=== PATIENT | male | born 1955 | race Caucasian/White ===

== ENCOUNTER 2021-08-19 09:54 | Outpatient (CLI) | payer OTHER, SELFPAY ==
--- NOTE | 2021-08-19 10:13 | CT_ITS ---
WS: [id number] CT HEAD TECHNIQUE: Noncontrast CT of the head obtained from the skullbase to the vertex. CLINICAL INFORMATION: L HAND NUMBNESS COMPARISON: None. DLP: 1030.[address] scans at [facility] use at least one of these dose optimization techniques: automated e xposure control; mA and/or kV adjustment per patient size (includes targeted exams where dose is matc hed to clinical indication); or iterative reconstruction. FINDINGS: No evidence of intracranial hemorrhage or mass effect. Ventricular system and basal cisterns are valdes nt. Mild small vessel changes with mild parenchymal volume loss. No extra-axial fluid collections. No evidence of mass or mass effect. Intracranial cavernous carotid and supraclinoid ICA calcification R IGHT greater than LEFT. Paranasal sinuses and mastoid air cells are well aerated. .Normal visualized soft tissues. CT/CT head wo con* [id number] IMPRESSION: 1. No evidence of intracranial hemorrhage or mass effect. 2. Mild small vessel changes with mild parenchymal volume loss. Paranasal sinu ses and mastoid air cells well aerated. 3. Cavernous carotid and RIGHT greater than LEFT supraclinoid ICA calcificatio n with suggestion of stenosis. This can be further evaluated with CTA or MRA he ad. 4. If persistent symptoms, recommend further evaluation with MRI head without and with gadolinium enhancement.
== END 2021-08-19 09:55 | disposition home or self-care (01) ==
PROVIDERS: Visit Provider Nurse Practitioner
DX: R20.0 Anesthesia of skin (principal)
CPT/HCPCS: 70450

== ENCOUNTER → 2021-10-02 11:44 | Outpatient (BNVA) | payer OTHER, SELFPAY | PROVIDERS: Visit Provider Urology | DX: R97.20 Elevated prostate specific antigen [PSA] (principal) | CPT/HCPCS: 99203; 99213 ==

== ENCOUNTER 2021-10-02 11:45 | Outpatient (CLI) | payer OTHER, SELFPAY | END 2021-10-02 11:46 | disposition home or self-care (01) | LOC: LAB 11:45 | PROVIDERS: Visit Provider Urology | DX: R97.20 Elevated prostate specific antigen [PSA] (principal) | CPT/HCPCS: 36415; 84153; 99203 ==

== ENCOUNTER 2022-01-01 08:22 | Outpatient (CLI) | payer OTHER, SELFPAY ==
[2022-01-01 09:12] LABS: Prostate Specific AG Urology 6.18 ng/mL (0-4)
== END 2022-01-01 08:23 | disposition home or self-care (01) ==
LOC: LAB 08:24
PROVIDERS: PCP Internal Medicine; Visit Provider Urology
DX: R97.20 Elevated prostate specific antigen [PSA] (principal)
CPT/HCPCS: 36415; 84153

== ENCOUNTER → 2022-01-30 08:00 | Outpatient (BNVA) | payer OTHER, SELFPAY | PROVIDERS: PCP Nurse Practitioner; Visit Provider Urology | DX: R97.20 Elevated prostate specific antigen [PSA] (principal); R39.198 Other difficulties with micturition | CPT/HCPCS: 51798; 81003; 99213 ==

== ENCOUNTER 2022-07-30 08:47 | Outpatient (CLI) | payer OTHER, SELFPAY ==
[2022-07-30 09:59] LABS: Prostate Specific AG Urology 6.21 ng/mL (0-4)
== END 2022-07-30 08:48 | disposition home or self-care (01) ==
LOC: LAB 08:56
PROVIDERS: PCP Nurse Practitioner; Visit Provider Urology
DX: R97.20 Elevated prostate specific antigen [PSA] (principal)
CPT/HCPCS: 36415; 84153

== ENCOUNTER → 2022-08-04 08:08 | Outpatient (BNVA) | payer OTHER, SELFPAY | PROVIDERS: PCP Nurse Practitioner; Visit Provider Urology | DX: R97.20 Elevated prostate specific antigen [PSA] (principal); R39.198 Other difficulties with micturition | CPT/HCPCS: 81003; 99213 ==

== ENCOUNTER 2023-03-12 07:53 | Outpatient (CLI) | payer OTHER, SELFPAY ==
--- NOTE | 2023-03-12 | ECG_ITS ---
[facility] Test Date: 2023-03-12 Pat Name: Jose Mcknight Department: Room: Gender: Male Lab Rn: Gomez Davies : 1955 Requested By: Susana Macias Order Number: [id number] Ganesh MD: Lucero Carver M.D. Interpretive Statements NAME OF STUDY: LEXISCAN SESTAMIBI STRESS TEST INDICATION: Chest Pain PROCEDURE: At the baseline, the blood pressure was 128/87 mmHg with a heart rate of 59 bpm. The electrocardiogram showed sinus bradycardia with first-degree AV block with nonspecific ST changes. ??? The Lexiscan was infused over a period of 20 seconds. A total of 0.4 milligrams of Lexiscan was infused. The stress phase was continued for a total of 5 minutes. Heart rate at the end of the stress phase was 80 bpm with a blood pressure of 100 over 61 mm Hg. The EKG at the peak infusion revealed no significant ST-T wave changes. ??? Sestamibi was injected 20 seconds after the Lexiscan infusion. ??? Blood pressure at the end of the recovery phase was 111/66 mmHg with a heart rate of 66 beats per minute. ??? CONCLUSION: 1. No significant EKG changes with the LexiScan infusion. 2. No LexiScan induced chest pain or cardiac arrhythmia. 3. Normal blood pressure and heart rate response. 4. Sestamibi/sestamibi perfusion scan pending; see separate report. Electronically Signed On 03-16-2023 12:08:05 PRODUCTION LEAD by Lucero Carver M.D. [id number]
[2023-03-12 08:11] VITALS: BMI 26.6
--- NOTE | 2023-03-12 08:11 | NMCV_ITS ---
NM jose antonio perf SPECT r/s* [id number] Jose Mcknight Age: 67 Gender: M : 1955 Exam Date: 03/12/2023 08:53 Ordering Phys: Susana Layton Technologist: YANIQUE Granda Exam Location: [facility] Indications: CHEST PAIN STRESS TEST Please [facility] IMAGE PROTOCOL Rest/Stress 1 Lexiscan Day Radiopharmaceutical Dose (mCi) Administration Site Administered by Rest: Tc-99m 10.7 IV YANIQUE Gonzalez Sestamibi Stress:Tc-99m 32.4 IV YANIQUE Gonzalez Sestamibi Rest: 12-Mar-2023 60 Discovery 630 Stress: 12-Mar-2023 30 Discovery 630 0.4mg Lexiscan. Images obtained in supine and prone position. SPECT RESULTS Technical Quality: Excellent Raw Data Analysis: Normal Image Corrections: No attenuation or motion correction applied Summed Stress Score: 0 Summed Rest Score: 8 Summed Difference Score: 0 PERFUSION FINDINGS SPECT images demonstrate homogeneous tracer distribution throughout the myocardium. FUNCTIONAL RESULTS (calculated via Gated SPECT) Stress Image LV EF (%): 79 Stress EDV (mL):78 TID: 0.98 Stress ESV (mL):16 FUNCTIONAL FINDINGS: The left ventricle is normal in size. Transient Ischemia Dilatation of 0.98. The left ventricular ejection fraction is normal with a value of 79%. There is normal left ventricular global systolic function. There is normal left ventricular wall thickening. IMPRESSIONS 1. Myocardial perfusion imaging is normal. Attenuation artifact noted in the basal to mid inferior lam. 2. Overall left ventricular systolic function is normal without regional wall motion abnormalities, LVEF=79%. 3. EKG portion of the study will be reported separately. 4. Scan indicates low risk for cardiac events. Lucero Carver MD (Electronically Signed) Final Date: 15 March 2023 12:01 S
[2023-03-12] MEDS: regadenoson 0.4 Mg/5 ml Syringe IVP (09:31)
[2023-03-12 09:48] VITALS: BP 111/66; PULSE 67
== END 2023-03-12 07:54 | disposition home or self-care (01) ==
LOC: CDL 07:54
PROVIDERS: PCP Nurse Practitioner; Visit Provider Nurse Practitioner
DX: R07.9 Chest pain, unspecified (principal)
CPT/HCPCS: 36415; 78452; 93017; 96374; A9500; J2785

== ENCOUNTER 2024-01-14 10:19 | Emergency (ER) | payer OTHER, SELFPAY ==
[2024-01-14] VITALS (9 sets, daily range): BP systolic 134–168; BP diastolic 85–98; PULSE 63–76; RESP 16–25; TEMP 36.8; O2SAT 85–100; BMI 27.4
--- NOTE | 2024-01-14 10:20 | ECG_ITS ---
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
--- NOTE | 2024-01-14 10:41 | ED_ITS ---
HPI - Abdominal Pain 2 General: Chief Complaint: Chest Pain Stated Complaint: CP, SOB Time Seen by Provider: 01/14/24 10:21 Source: patient Mode of arrival: ambulatory Limitations: no limitations History of Present Illness: Patient is a very nice 68-year-old male presents to ED today with complaint of right upper quadrant abdominal pain. He states on Wednesday, he was out of town in [place] and ate a salad for dinner. He states he stayed half of the salad and ate it later that evening. He states he was up all night with abdominal pain, nausea, and a few episodes of diarrhea. Patient feels like the diarrhea has improved. He has intermittently had significant episodes of right upper quadrant pain since then. He has not ran fevers. He is not complaining of chest pain, shortness of breath, or difficulty breathing. Vital signs are stable upon arrival. MD elicited complaint: abdominal pain Pertinent past history: none Onset (ago): day(s) Pain Consistency: constant Location: RUQ Severity: severe (at its worst-rating a 3/10 currently) Migration to: no migration Exacerbating factors: nothing Relieving factors: nothing Associated Symptoms: Reports diarrhea (improved) and nausea; Denies chills, dysuria, fever(s), hematochezia, melena, syncope and vomiting Related Data Home Medications Medication Instructions Recorded Confirmed cholecalciferol (vitamin D3) 125 125 mcg PO DAILY 10/02/21 01/14/24 mcg (5,000 unit) capsule lisinopril 40 mg tablet 40 mg PO DAILY 10/02/21 01/14/24 metformin 1,000 mg tablet 1,000 mg PO BID 10/02/21 01/14/24 omega 7-rjb-qfk-fish oil 300 1 cap PO BID 10/02/21 01/14/24 mg-1,000 mg capsule (Fish Oil) spironolactone 25 mg tablet 25 mg PO DAILY 01/30/22 01/14/24 empagliflozin 25 mg tablet 25 mg PO DAILY 01/14/24 01/14/24 ezetimibe 10 mg PO DAILY 01/14/24 01/14/24 glipizide 10 mg tablet 10 mg PO DAILY 01/14/24 01/14/24 Previous Rx's Medication Instructions Recorded hydrocodone 5 mg-acetaminophen 325 1 tab PO Q6H PRN pain #14 tabs 01/14/24 mg tablet ondansetron 4 mg disintegrating 4 mg PO Q8H PRN nausea and 01/14/24 tablet vomiting #14 tabs Allergies Allergy/AdvReac Type Severity Reaction Status Date / Time No Known Allergies Allergy Verified 01/14/24 10:30 Review of Systems 2 Const: Reports: fatigue and malaise; Denies: fever(s), chills or body aches Eyes: Denies: yellow eyes Card: Denies: chest pain, palpitations, irregular heart rhythm, edema, swelling of feet/ankles, lightheadedness, syncope, pre-syncope, dyspnea on exertion, orthopnea, leg pain with exertion or acrocyanosis Resp: Denies: dyspnea GI: Reports: abdominal pain, nausea and diarrhea (improved); Denies: vomiting, hematochezia or melena : Denies: flank pain, difficulty urinating, dysuria, urinary frequency, urinary urgency or urinary hesitancy Musc: Denies: neck pain, back pain, extremity pain, extremity swelling, joint pain or joint swelling Skin/Breast: Denies: rash Neuro: Denies: headache(s), numbness in extremities, weakness in extremities, sensory changes or dizziness PFSH ED 2 PFSH: Medical History Elevated PSA Surgical History History of vocal cord polypectomy Family History Father , AT 72 Stroke Mother , IN LATE 40'S EARLY 50'S Cirrhosis of liver Social History Smoking and tobacco/nicotine status: never used tobacco/nicotine Alcohol intake: never Substance/Drug Use: never Marital status: Current occupational status: unemployed Physical Exam 2 Const: COMMON NORMALS: no acute distress, average body habitus, patient oriented x3, no limitations, healthy appearing, alert and well nourished HENMT: FACE & SINUS: normal facial exam Eye: COMMON NORMALS: no scleral icterus Chest: COMMONS NORMALS: normal inspection of the chest and normal palpation of entire chest wall Resp: COMMON NORMALS: normal respiratory effort and clear to auscultation bilaterally AUSCULTATION: clear to auscultation bilaterally Cardio: COMMON NORMALS: regular rate and regular rhythm RATE: regular rate RHYTHM: regular rhythm GI: COMMON NORMALS: Normal to inspection, nondistended, normoactive bowel sounds present, Soft to palpation, No hepatosplenomegaly present and no masses INSPECTION: Yes normal to inspection AUSCULTATION: Yes normoactive bowel sounds PALPATION: Yes Soft to palpation, Yes Tenderness to palpation present (GI) Details: RUQ and Yes No hepatosplenomegaly present : COMMON NORMALS: Yes no CVA tenderness BLADDER/KIDNEY EXAM: Yes no CVA tenderness Back/Pelvis: COMMON NORMALS: no CVA tenderness and thoracic and lumbar spine normal to inspection Extremity: GENERAL: Yes normal exam except as noted Neuro: COMMON NORMALS: patient oriented x3, moves all extremities, no focal motor deficits, no sensory deficits noted and gait normal S ENSORIUM/ORIENTATION: Yes alert Skin: COMMON NORMALS: no rashes or lesions noted GENERAL SKIN EXAM: no rashes or lesions noted Course 2 Consultations: Consultation #1: Dr. Eisenberg-will follow up in office; recommends avoiding greasy/fatty foods, RX pain/nausea Vital Signs: Vital signs: Vital Signs Temperature 98.2 F 01/14/24 10:23 Pulse Rate 72 01/14/24 12:00 Respiratory Rate 18 01/14/24 12:00 Blood Pressure 134/85 01/14/24 11:30 Pulse Oximetry 100 01/14/24 12:00 Oxygen Delivery Me thod Room Air 01/14/24 10:23 MDM - Abdominal Pain Medical Decision Making Patient got triaged as chest pain, shortness of breath however during my examination, his main complaint is right upper quadrant abdominal pain after eating a salad with ranch a few days ago. His vital signs are unremarkable. Blood work here overall is unremarkable apart from an elevated glucose. He is a known diabetic. His white count and liver enzymes are unremarkable. Ultrasound showing cholelithiasis. He does have a 1.8 cm gallstone entrapped in the neck of his gallbladder. Surgical consultation was recommended. I did speak to Dr. Eisenberg who wanted to follow-up with patient next week in office. Recommend patient avoid fatty/greasy foods. Will give him pain/nausea medications he may use at home. Strict return to ED precautions given. He was not complaining of chest pain or shortness of breath during my examination. Blood work had been started from triage based on initial complaint. His baseline troponin is normal. His EKG is unremarkable. He has normal stress test imaging performed within the last year which was normal. Medical Records I reviewed the patient's medical records. Lab Data I reviewed the patient's lab results. 01/14/24 10:43 01/14/24 10:43 Labs/Radiology: Radiology Impressions Gallbladder Ultrasound 01/14/24 10:42 IMPRESSION: 1. Cholelithiasis. 1.8 cm gallstone is possibly entrapped in the gallbladder neck as it does not move with patient positioning. Recommend surgical consultation. No acute cholecystitis at this time by ultrasound criteria. 2. No bile duct dilatation. Laboratory Results WBC 10.74 10^3/uL (3.29-11.43) 01/14/24 10:43 RBC 5.13 10^6/uL (3.85-5.65) 01/14/24 10:43 Hgb 15.40 g/dL (11.27-16.99) 01/14/24 10:43 Hct 45.9 % (37-53) 01/14/24 10:43 MCV 89.5 fl (82-101) 01/14/24 10:43 MCH 30.0 pg (27-33) 01/14/24 10:43 MCHC 33.6 g/dL (30-55) 01/14/24 10:43 RDW 12.8 % (12.1-15.1) 01/14/24 10:43 Plt Count 212 10^3/cmm (157-399) 01/14/24 10:43 MPV 9.5 fL (7.4-10.4) 01/14/24 10:43 Neut % (Auto) 79.0 % 01/14/24 10:43 Lymph % (Auto) 10.3 % 01/14/24 10:43 [place] % (Auto) 6.3 % 01/14/24 10:43 Eos % (Auto) 3.5 % 01/14/24 10:43 Baso % (Auto) 0.4 % 01/14/24 10:43 Neut # (Auto) 8.48 10^3/uL (1.8-7.7) H 01/14/24 10:43 Lymph # (Auto) 1.1 10^3/uL (0.8-4.8) 01/14/24 10:43 [place] # (Auto) 0.7 10^3/uL (0.2-0.9) 01/14/24 10:43 Eos # (Auto) 0.4 10^3/uL (0.0-0.8) 01/14/24 10:43 Baso # (Auto) 0.0 10^3/uL (0.0-0.1) 01/14/24 10:43 Nucleated RBC % (auto) 0 % 01/14/24 10:43 Nucleated RBCs # 0.0 /100WBC 01/14/24 10:43 Sodium 138 mmol/L (136-145) 01/14/24 10:43 Potassium 4.1 mmol/L (3.5-5.1) 01/14/24 10:43 Chloride 103 mmol/L (98-107) 01/14/24 10:43 Carbon Dioxide 22 mmol/L (22-29) 01/14/24 10:43 Anion Gap 17.1 (5-19) 01/14/24 10:43 BUN 15 mg/dL (8-23) 01/14/24 10:43 Creatinine 0.8 mg/dL (0.7-1.2) 01/14/24 10:43 GFR Calculation 95.8 mL/min (90-130) 01/14/24 10:43 Glucose 285 mg/dL (65-115) H 01/14/24 10:43 Calculated Osmolality 297 mOsm/kg (285-295) H 01/14/24 10:43 Calcium 9.0 mg/dL (8.5-10.5) 01/14/24 10:43 Total Bilirubin 1.2 mg/dL (0.15-1.2) 01/14/24 10:43 AST 12 U/L (0-40) 01/14/24 10:43 ALT 13 U/L (0-41) 01/14/24 10:43 Alkaline Phosphatase 76 U/L (40-130) 01/14/24 10:43 Troponin T Baseline 11 ng/L (0-15) 01/14/24 10:43 Total Protein 6.9 g/dL (6.6-8.7) 01/14/24 10:43 Albumin 4.2 g/dL (3.5-5.2) 01/14/24 10:43 Globulin 2.7 g/dL (1.3-4.6) 01/14/24 10:43 Lipase 38 U/L (13-60) 01/14/24 10:43 Urine Color Yellow (Yellow) 01/14/24 11:43 Urine Appearance Clear (CLEAR) 01/14/24 11:43 Urine pH 5.0 (5-7) 01/14/24 11:43 Ur Specific [place] 1.041 (1.005-1.030) H 01/14/24 11:43 Urine Protein Negative (Negative) 01/14/24 11:43 Urine Glucose (UA) 3+ (Normal) H 01/14/24 11:43 Urine Ketones Negative (Negative) 01/14/24 11:43 Urine Blood Negative (Negative) 01/14/24 11:43 Urine Nitrate Negative (Negative) 01/14/24 11:43 Urine Bilirubin Negative (Negative) 01/14/24 11:43 Urine Urobilinogen 1.0 mg/dL (Negative) 01/14/24 11:43 Ur Leukocyte Esterase Negative (Negative) 01/14/24 11:43 Urine RBC 0-2 /hpf (0-2) 01/14/24 11:43 Urine WBC 0-5 /hpf (0-5) 01/14/24 11:43 Ur Squamous Epith Cells 0-5 /hpf (0-5) 01/14/24 11:43 Amorphous Sediment Not Reportable 01/14/24 11:43 Urine Bacteria None seen /hpf (NONE) 01/14/24 11:43 Hyaline Casts 0-4 /lpf H 01/14/24 11:43 All radiology interpretation(s) finalized by discharge Discharge Plan Discharge Patient Disposition: Home Clinical Impression: Cholelithiasis Qualifiers: Cholelithiasis location: gallbladder Cholecystitis presence: without cholecystitis Biliary obstruction: without biliary obstruction Qualified Code(s): K80.20 - Calculus of gallbladder without cholecystitis without obstruction Condition: Stable Prescriptions: New hydrocodone-acetaminophen 5-325 mg tablet 1 tab PO Q6H PRN (Reason: pain) Qty: 14 0RF ondansetron 4 mg tablet,disintegrating 4 mg PO Q8H PRN (Reason: nausea and vomiting) Qty: 14 0RF No Action omega 3-cvt-xtj-fish oil [Fish Oil] 300-1,000 mg capsule 1 cap PO BID lisinopril 40 mg tablet 40 mg PO DAILY metformin 1,000 mg tablet 1,000 mg PO BID cholecalciferol (vitamin D3) 125 mcg (5,000 unit) capsule 125 mcg PO DAILY spironolactone 25 mg tablet 25 mg PO DAILY glipizide 10 mg tablet 10 mg PO DAILY empagliflozin 25 mg Tablet 25 mg PO DAILY ezetimibe 10 mg PO DAILY Discharge Orders: Discharge ED (Routine); Ordered 01/14/24 Ordered By: Angelika Whitaker Referrals: Susana Layton FNP [Primary Care Provider] - Patient Instructions: Gallstones (ED) Activity Restrictions/Additional Instructions: As we discussed, you need to completely avoid any greasy or fatty foods until your follow-up with general surgery and told otherwise. You need to return to the emergency department for severe or constant right upper quadrant pain, repetitive episodes of vomiting, fevers, yellowing to your skin or eyes, generally feeling worse or unwell, or any other concerns you may have. Case management should reach out to you later today or early next week to set you up with your general surgery appointment. Coding Level of Care Code ED Certified Nutritionist for Lily Goyal
--- NOTE | 2024-01-14 10:42 | US_ITS ---
WS: [id number] RIGHT UPPER QUADRANT ULTRASOUND HISTORY: RUQ pain COMPARISON: None available. Liver: 16.0 cm in length. Normal size liver and echogenicity. No bile duct dilatation or mass. Portal Vein: Not obtained. Gallbladder: Normally distended gallbladder. There is a stone in the gallbladder neck which does not move with patient position. Stone measures approximately 1.8 x 0.9 x 1.4 cm. There is also small amou nt of sludge adjacent to this gallstone. CBD: 0.4 cm Pancreas: Head and tail are not visualized. The body is normal. Right kidney: 9.6 cm in length. Normal size and echogenicity. No hydronephrosis or mass. Aorta and IVC: Unremarkable abdominal aorta and IVC. No ascites. US/US gall bladder [id number] IMPRESSION: 1. Cholelithiasis. 1.8 cm gallstone is possibly entrapped in the gallbladder n bertha as it does not move with patient positioning. Recommend surgical consultati on. No acute cholecystitis at this time by ultrasound criteria. 2. No bile duct dilatation.
--- NOTE | 2024-01-14 10:48 | PC.PHAR ---
[facility] has [facility], faxed them at 10:50
[2024-01-14 10:58] LABS: Basophils % 0.4 %; Eosinophils # 0.4 10^3/uL (0.0-0.8); Eosinophils % 3.5 %; Hematocrit 45.9 % (37-53); Lymphocytes # 1.1 10^3/uL (0.8-4.8); Lymphocytes % 10.3 %; Mean Corpuscular HGB Conc 33.6 g/dL (30-55); Mean Corpuscular Volume 89.5 fl (82-101); Mean Platelet Volume 9.5 fL (7.4-10.4); Monocytes # 0.7 10^3/uL (0.2-0.9); Monocytes % 6.3 %; Neutrophils # 8.48 10^3/uL (1.8-7.7); Nucleated Red Blood Cells % 0 %; Platelet Count 212 10^3/cmm (157-399); Red Blood Count 5.13 10^6/uL (3.85-5.65); Red Cell Distribution Width 12.8 % (12.1-15.1); White Blood Count 10.74 10^3/uL (3.29-11.43)
[2024-01-14 11:14] LABS: Alanine Aminotransferase 13 U/L (0-41); Albumin Level 4.2 g/dL (3.5-5.2); Alkaline Phosphatase 76 U/L (40-130); Anion Gap 17.1 (5-19); Aspartate Amino Transferase 12 U/L (0-40); Blood Urea Nitrogen 15 mg/dL (8-23); Carbon Dioxide 22 mmol/L (22-29); Chloride 103 mmol/L (98-107); Creatinine Clr Calc Pharmacy 79.5668; Globulin 2.7 g/dL (1.3-4.6); Glomerular Filtration Rate 95.8 mL/min (90-130); Glucose 285 mg/dL (65-115); Lipase 38 U/L (13-60); Osmolality Calculated 297 mOsm/kg (285-295); Potassium 4.1 mmol/L (3.5-5.1); Sodium 138 mmol/L (136-145); Total Bilirubin 1.2 mg/dL (0.15-1.2); Total Protein 6.9 g/dL (6.6-8.7)
[2024-01-14 11:21] LABS: Troponin(5th) Baseline 11 ng/L (0-15)
[2024-01-14 11:54] LABS: Bilirubin Urine Negative (Negative); Blood Urine Negative (Negative); Glucose Urine UA 3+ (Normal); Ketones Urine Negative (Negative); Leukocyte Esterase Urine Negative (Negative); Nitrate Urine Negative (Negative); Protein Urine Negative (Negative); Urine Appearance Clear (CLEAR); Urine Color Yellow (Yellow)
[2024-01-14 11:56] LABS: Add Urine Microscopic? YES; Bacteria Urine None Seen /hpf; Hyaline Casts Urine 0-4 /lpf; RBC Urine 0-2 /hpf (0-2); Squamous Epithelial Cell Urine 0-5 /hpf (0-5); WBC Urine 0-5 /hpf (0-5)
[2024-01-14 12:00] LABS: Specific Gravity, Urine 1.041 (1.005-1.030)
--- NOTE | 2024-01-17 08:39 | DCPLANNER ---
messaged sent to gen surg.
== END 2024-01-14 12:12 | disposition home or self-care (01) ==
PROVIDERS: Emergency Medicine; Emergency Provider Physician Assistant; PCP Nurse Practitioner
DX: K80.20 Calculus of gallbladder without cholecystitis without obstruction (principal); Z79.84 Long term (current) use of oral hypoglycemic drugs
CPT/HCPCS: 36415; 76705; 80053; 81001; 83690; 84484; 85025; 93005; 99284

== ENCOUNTER → 2024-01-26 11:27 | Outpatient (BNVA) | payer OTHER, SELFPAY | PROVIDERS: PCP Nurse Practitioner; Visit Provider Surgery | DX: K82.9 Disease of gallbladder, unspecified (principal) | CPT/HCPCS: 99203 ==

== ENCOUNTER 2024-02-21 05:38 | Day surgery (SDC) | payer OTHER, SELFPAY ==
--- NOTE | 2024-02-21 05:48 | W.PM.OPSUD ---
Surgery/Procedure H&P Update DATE OF PROCEDURE: February 21, 2024 DATE H&P PERFORMED: 01/26/24 H&P UPDATE INFORMATION: I have reviewed H&P completed within last 30 days, I have examined patient prior to procedure, No changes to prior documentation and H&P is in [facility] on date indicated PLANNED PROCEDURE: Operation Date: 02/21/24 07:00 Proposed Procedures p Laparoscopic Cholecystectomy/ possible open(Not Applicable) - Brenden Reeves MD
--- NOTE | 2024-02-21 06:01 | PC.NURSE ---
pt arrived for procedure to remove gall bladder. pt is questioning if he really needs the procedure since he has not had symptoms since his initial ER visit. Pt felt as if his visit to the clinic did not fully answer his questions about the necessity for the surgery. Dr. Reeves was contacted to come to see the patient before proceeding with pre op prep.
--- NOTE | 2024-02-21 06:53 | ANES.PREANE2 ---
Pre-Anesthetic Assessment Height/Weight: Height 1.63 m Operation Date: 02/21/24 07:00 Proposed Procedures p Laparoscopic Cholecystectomy/ possible open(Not Applicable) - Brenden Reeves MD Familial anesthetic complications: None Was Beta Catarina taken within 24 hours: N/A Was Clonidine taken within 24 hours: N/A Last intake: > 8 hrs Social No alcohol and No tobacco Exam alert, oriented x 3, clear to auscultation bilaterally and regular rate & rhythm Airway Mallampati: Class I Dentition: full CV/HEM Hypertension Metabolic Diabetes Mellitus Anesthetic Plan ASA status: 3 Anesthesia: General Risk of > 500 ml blood loss (7ml/kg in children): No Medications/Allergies Home Medications Medication Instructions Recorded Confirmed Last Taken Type cholecalciferol (vitamin D3) 125 125 mcg PO DAILY 10/02/21 02/17/24 Unknown History mcg (5,000 unit) capsule lisinopril 40 mg tablet 40 mg PO DAILY 10/02/21 02/17/24 02/17/24 History metformin 1,000 mg tablet 1,000 mg PO BID 10/02/21 02/17/24 02/17/24 History omega 1-jah-oju-fish oil 300 1 cap PO ONCE 10/02/21 02/17/24 Unknown History mg-1,000 mg capsule (Fish Oil) spironolactone 25 mg tablet 25 mg PO DAILY 01/30/22 02/17/24 02/17/24 History empagliflozin 25 mg tablet 25 mg PO DAILY 01/14/24 02/17/24 02/17/24 History (Jardiance) ezetimibe 10 mg PO DAILY 01/14/24 02/17/24 Unknown History glipizide 10 mg tablet 10 mg PO DAILY 01/14/24 02/17/24 02/17/24 History hydrocodone 5 mg-acetaminophen 325 1 tab PO Q6H PRN pain #14 tabs 01/14/24 02/17/24 Unknown Rx mg tablet ondansetron 4 mg disintegrating 4 mg PO Q8H PRN nausea and 01/14/24 02/17/24 Unknown Rx tablet vomiting #14 tabs Allergies Allergy/AdvReac Type Severity Reaction Status Date / Time No Known Allergies Allergy Verified 02/17/24 14:41 PFSH Anesthesia Medical History Elevated PSA Surgical History History of vocal cord polypectomy Family History Father , AT 72 Stroke Mother , IN LATE 40'S EARLY 50'S Cirrhosis of liver Social History Smoking and tobacco/nicotine status: never used tobacco/nicotine Alcohol intake: never Substance/Drug Use: never Marital status: Current occupational status: unemployed Data Anesthesia Cardiac Studies: Sestamibi Stress Test (Cardiology) 03/12/23
--- NOTE | 2024-02-21 09:24 | SUR.PREOP ---
0645 Dr. Reeves here to speak with patient,patient has decided to cancel surgery and left with and daughter ambulatory.
== END 2024-02-21 06:45 | disposition home or self-care (01) ==
LOC: OR 05:39
PROVIDERS: PCP Nurse Practitioner; Visit Provider Surgery
PROC: 0FT44ZZ Resection of Gallbladder, Percutaneous Endoscopic Approach (ICD-10-PCS; CPT 47562; principal; 2024-02-21 07:00)
DX: Z53.9 Procedure and treatment not carried out, unspecified reason (principal)

== ENCOUNTER 2024-08-12 09:57 | Observation (INO) | payer OTHER, SELFPAY ==
[2024-08-12] VITALS (9 sets, daily range): BP systolic 109–134; BP diastolic 59–87; PULSE 72–87; RESP 16–18; TEMP 36.4–37.3; O2SAT 95–100; BMI 27.4; BMI 24.7
--- NOTE | 2024-08-12 09:59 | ECG_ITS ---
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 Measurements Intervals [place] Rate: 76 P: 68 UT: 174 QRS: 6 QRSD: 96 T: 53 QT: 344 QTc: 388 Interpretive Statements SINUS RHYTHM POSSIBLE RIGHT VENTRICULAR CONDUCTION DELAY [RSR (QR) IN V1/V2] PROBABLE SEPTAL MYOCARDIAL INFARCTION , PROBABLY OLD [35 ms Q WAVE IN V1/V2] Compared to ECG 01/14/2024 10:21:44 No significant changes Electronically Signed On 08-12-2024 11:51:06 CDT by Alta Ruiz M.D. [id number]
--- NOTE | 2024-08-12 10:18 | XRR_ITS ---
PROCEDURE INFORMATION: Exam: XR Chest Exam date and time: 08/12/2024 10:37 AM Age: 68 years old Clinical indication: Chest pressure; PT complains of right sided chest pain that started last night. PT states it has happened before. PT denies any radiation or nausea and vomiting. PT states he has a histroy of gallbladder issues and is supposed to see general surgery soon. TECHNIQUE: Imaging protocol: Radiologic exam of the chest. Views: 1 view. COMPARISON: No relevant prior studies available. FINDINGS: Lungs: Unremarkable. No consolidation. Pleural spaces: Unremarkable. No pleural effusion. No pneumothorax. Heart/Mediastinum: Unremarkable. No cardiomegaly. Bones/joints: Unremarkable. XR/XR chest 1V portable [id number] IMPRESSION: No acute findings.
--- NOTE | 2024-08-12 10:23 | W.ED.CHESTPA ---
HPI - Chest Pain General: Chief Complaint: Chest Pain Stated Complaint: chest pain Time Seen by Provider: 08/12/24 10:14 History of Present Illness: 68-year-old male presents emergency room complaining of right-sided chest pain. With get him to localize the pain more he is complaining of right upper quadrant pain. He has had gallbladder issues in the past. Later in the visit he mentioned he had some blood in his urine a few days ago but repeat UA today was unremarkable. He is diabetic he is on Jardiance and metformin. He has had problems with his gallbladder recently has been seen several times evaluated to have his gallbladder out but at this point they have put off surgery because he had seem to be getting better and had not had any further recurrences. No associated shortness of breath discomfort is not associated with exertion. He has had some vomiting and loose stools with associated with this as well Associated symptoms: Reports abdominal pain, nausea and vomiting; Deny dyspnea or fever(s) Related Data Home Medications ?Medication ?Instructions ?Recorded ?Confirmed cholecalciferol (vitamin D3) 125 125 mcg PO DAILY 10/02/21 02/17/24 mcg (5,000 unit) capsule lisinopril 40 mg tablet 40 mg PO DAILY 10/02/21 02/17/24 metformin 1,000 mg tablet 1,000 mg PO BID 10/02/21 02/17/24 omega 2-ipn-vtw-fish oil 300 1 cap PO ONCE 10/02/21 02/17/24 mg-1,000 mg capsule (Fish Oil) spironolactone 25 mg tablet 25 mg PO DAILY 01/30/22 02/17/24 empagliflozin 25 mg tablet 25 mg PO DAILY 01/14/24 02/17/24 (Jardiance) ezetimibe 10 mg PO DAILY 01/14/24 02/17/24 glipizide 10 mg tablet 10 mg PO DAILY 01/14/24 02/17/24 Previous Rx's ?Medication ?Instructions ?Recorded hydrocodone 5 mg-acetaminophen 325 1 tab PO Q6H PRN pain #14 tabs 01/14/24 mg tablet ondansetron 4 mg disintegrating 4 mg PO Q8H PRN nausea and 01/14/24 tablet vomiting #14 tabs Allergies Allergy/AdvReac Type Severity Reaction Status Date / Time No Known Allergies Allergy Verified 11/21/24 14:41 Review of Systems Const: Denies: fever(s) or chills Card: Denies: chest pain Resp: Denies: dyspnea GI: Reports: abdominal pain, nausea, vomiting and diarrhea; Denies: hematemesis, hematochezia or melena : Denies: dysuria, urinary frequency or urinary urgency Musc: Denies: neck pain or back pain Skin/Breast: Denies: rash PFSH ED PFSH: Medical History Elevated PSA Surgical History History of vocal cord polypectomy Family History Father , AT 72 Stroke Mother , IN LATE 40'S EARLY 50'S Cirrhosis of liver Social History Smoking and tobacco/nicotine status: never used tobacco/nicotine Alcohol intake: never Substance/Drug Use: never Marital status: Current occupational status: unemployed Physical Exam Const: GENERAL APPEARANCE: cooperative ORIENTATION/CONSCIOUSNESS: Yes awake, Yes oriented to person, Yes oriented to place and Yes oriented to time HENMT: COMMON NORMALS: normocephalic, atraumatic and hearing grossly normal bilaterally HEAD & SCALP: normocephalic and atraumatic Resp: COMMON NORMALS: normal respiratory effort, No retractions, No use of accessory muscles and clear to auscultation bilaterally AUSCULTATION: clear to auscultation bilaterally Cardio: COMMON NORMALS: regular rate, regular rhythm and No murmurs present (Cardio) RATE: regular rate RHYTHM: regular rhythm GI: COMMON NORMALS: No hepatosplenomegaly present AUSCULTATION: Yes normoactive bowel sounds PALPATION: Yes Tenderness to palpation present (GI) (Right upper quadrant), No Guarding due to palpation present (GI) and Yes No hepatosplenomegaly present Extremity: COMMON NORMALS: normal to inspection, capillary refill normal, no clubbing, cyanosis or edema, no calf tenderness and no pedal edema Neuro: SENSORIUM/ORIENTATION: Yes oriented to person, Yes oriented to place and Yes oriented to time Skin: COMMON NORMALS: no rashes or lesions noted GENERAL SKIN EXAM: no rashes or lesions noted Course Vital Signs: Vital signs: Vital Signs Temperature 97.6 F 08/12/24 10:10 Pulse Rate 85 08/12/24 14:00 Respiratory Rate 18 08/12/24 13:00 Blood Pressure 125/59 08/12/24 14:00 Pulse Oximetry 95 08/12/24 14:00 Oxygen Delivery Me thod Room Air 08/12/24 14:00 MDM - Chest Pain Medical Decision Making Patient's right upper quadrant tenderness is mild initially and then resolved during the ER visit. Gallbladder wall slightly thickened there is still a stone in the neck of the gallbladder does not appear to be a stone within the common bile duct. White count significantly elevated discussed with surgeon will admit to hold diabetic medications started on Zosyn. Pain and nausea medications General Surgery will reevaluate. Lab Data 08/12/24 10:19 08/12/24 10:19 Radiology Impressions Chest X-Ray 08/12/24 10:18 IMPRESSION: No acute findings. Gallbladder Ultrasound 08/12/24 10:29 IMPRESSION: Stone in the gallbladder neck with slight gallbladder wall thickening. Acute cholecystitis can not be excluded. Laboratory Results WBC 16.77 10^3/uL (3.29-11.43) H 08/12/24 10:19 RBC 5.26 10^6/uL (3.85-5.65) 08/12/24 10:19 Hgb 15.70 g/dL (11.27-16.99) 08/12/24 10:19 Hct 46.8 % (37-53) 08/12/24 10:19 MCV 89.0 fl (82-101) 08/12/24 10:19 MCH 29.8 pg (27-33) 08/12/24 10:19 MCHC 33.5 g/dL (30-55) 08/12/24 10:19 RDW 13.2 % (12.1-15.1) 08/12/24 10:19 Plt Count 197 10^3/cmm (157-399) 08/12/24 10:19 MPV 9.3 fL (7.4-10.4) 08/12/24 10:19 Neut % (Auto) 88.3 % 08/12/24 10:19 Lymph % (Auto) 3.8 % 08/12/24 10:19 Quay % (Auto) 6.6 % 08/12/24 10:19 Eos % (Auto) 0.5 % 08/12/24 10:19 Baso % (Auto) 0.4 % 08/12/24 10:19 Neut # (Auto) 14.80 10^3/uL (1.8-7.7) H 08/12/24 10:19 Lymph # (Auto) 0.6 10^3/uL (0.8-4.8) L 08/12/24 10:19 [place]ay # (Auto) 1.1 10^3/uL (0.2-0.9) H 08/12/24 10:19 Eos # (Auto) 0.1 10^3/uL (0.0-0.8) 08/12/24 10:19 Baso # (Auto) 0.1 10^3/uL (0.0-0.1) 08/12/24 10:19 Nucleated RBC % (auto) 0 % 08/12/24 10:19 Nucleated RBCs # 0.0 /100WBC 08/12/24 10:19 Sodium 135 mmol/L (136-145) L 08/12/24 10:19 Potassium 4.5 mmol/L (3.5-5.1) 08/12/24 10:19 Chloride 99 mmol/L (98-107) 08/12/24 10:19 Carbon Dioxide 21 mmol/L (22-29) L 08/12/24 10:19 Anion Gap 19.5 (5-19) H 08/12/24 10:19 BUN 14 mg/dL (8-23) 08/12/24 10:19 Creatinine 0.9 mg/dL (0.7-1.2) 08/12/24 10:19 GFR Calculation 83.7 mL/min (90-130) L 08/12/24 10:19 Glucose 135 mg/dL (65-115) H 08/12/24 10:19 Calculated Osmolality 283 mOsm/kg (285-295) L 08/12/24 10:19 Lactic Acid 2.0 mmol/L (0.5-2.2) 08/12/24 10:19 Calcium 10.2 mg/dL (8.5-10.5) 08/12/24 10:19 Total Bilirubin 1.2 mg/dL (0.15-1.2) 08/12/24 10:19 AST 11 U/L (0-40) 08/12/24 10:19 ALT 13 U/L (0-41) 08/12/24 10:19 Alkaline Phosphatase 78 U/L (40-130) 08/12/24 10:19 Troponin T Baseline 10 ng/L (0-15) 08/12/24 10:19 Troponin T 120 Minute 8.43 ng/L (0-15) 08/12/24 12:10 Delta Troponin T -1.57 ABS# (0-10) L 08/12/24 12:10 Total Protein 7.6 g/dL (6.6-8.7) 08/12/24 10:19 Albumin 4.5 g/dL (3.5-5.2) 08/12/24 10:19 Globulin 3.1 g/dL (1.3-4.6) 08/12/24 10:19 Urine Color Yellow (Yellow) 08/12/24 13:49 Urine Appearance Clear (CLEAR) 08/12/24 13:49 Urine pH 5.0 (5-7) 08/12/24 13:49 Ur Specific [place] 1.034 (1.005-1.030) H 08/12/24 13:49 Urine Protein Negative (Negative) 08/12/24 13:49 Urine Glucose (UA) 3+ (Normal) H 08/12/24 13:49 Urine Ketones Trace (Negative) 08/12/24 13:49 Urine Blood Negative (Negative) 08/12/24 13:49 Urine Nitrate Negative (Negative) 08/12/24 13:49 Urine Bilirubin Negative (Negative) 08/12/24 13:49 Urine Urobilinogen 0.2 mg/dL (Negative) 08/12/24 13:49 Ur Leukocyte Esterase Negative (Negative) 08/12/24 13:49 Urine RBC 0-4 /hpf (0-2) H 08/12/24 13:49 Urine WBC 0-4 /hpf (0-5) H 08/12/24 13:49 Ur Squamous Epith Cells 0-4 /hpf (0-5) H 08/12/24 13:49 Amorphous Sediment Not Reportable 08/12/24 13:49 Urine Bacteria None /hpf (NONE) 08/12/24 13:49 All radiology interpretation(s) finalized by discharge Discharge Plan Discharge Patient Disposition: Placed in Observation Clinical Impression: Cholecystitis, Cholelithiasis Coding Level of Care Code ED Short Story Writer for Lily Goyal
[2024-08-12 10:27] LABS: Basophils # 0.1 10^3/uL (0.0-0.1); Basophils % 0.4 %; Eosinophils # 0.1 10^3/uL (0.0-0.8); Eosinophils % 0.5 %; Hematocrit 46.8 % (37-53); Lymphocytes # 0.6 10^3/uL (0.8-4.8); Lymphocytes % 3.8 %; Mean Corpuscular HGB Conc 33.5 g/dL (30-55); Mean Corpuscular Hemoglobin 29.8 pg (27-33); Mean Platelet Volume 9.3 fL (7.4-10.4); Monocytes # 1.1 10^3/uL (0.2-0.9); Monocytes % 6.6 %; Neutrophils % 88.3 %; Nucleated Red Blood Cells % 0 %; Platelet Count 197 10^3/cmm (157-399); Red Blood Count 5.26 10^6/uL (3.85-5.65); Red Cell Distribution Width 13.2 % (12.1-15.1); White Blood Count 16.77 10^3/uL (3.29-11.43)
--- NOTE | 2024-08-12 10:29 | USR_ITS ---
PROCEDURE INFORMATION: Exam: US Abdomen, Limited; Right Upper Quadrant Exam date and time: 08/12/2024 11:01 AM Age: 68 years old Clinical indication: Abdominal pain; Localized; Right upper quadrant (ruq); Additional info: Ruq abd pain TECHNIQUE: Imaging protocol: Real time ultrasound of the abdomen with image documentation. Limited exam focused on the right upper quadrant. COMPARISON: US gall bladder [id number] 01/14/2024 11:09 AM FINDINGS: Liver: Normal. No masses. Gallbladder: Gallbladder wall measures 4 mm in thickness. Gallbladder sludge is seen. A 1 cm stone is noted in the gallbladder neck. Biliary ducts: Normal. No stones. No dilation. Pancreas: Visualized pancreas is unremarkable. Right kidney: Normal. No mass. No hydronephrosis. US/US gall bladder [id number] IMPRESSION: Stone in the gallbladder neck with slight gallbladder wall thickening. Acute cholecystitis can not be excluded.
[2024-08-12] MEDS: aspirin 81 mg Chew Tablet 324 MG PO (10:30)
[2024-08-12 10:46] LABS: Alanine Aminotransferase 13 U/L (0-41); Albumin Level 4.5 g/dL (3.5-5.2); Alkaline Phosphatase 78 U/L (40-130); Anion Gap 19.5 (5-19); Aspartate Amino Transferase 11 U/L (0-40); Blood Urea Nitrogen 14 mg/dL (8-23); Calcium 10.2 mg/dL (8.5-10.5); Carbon Dioxide 21 mmol/L (22-29); Chloride 99 mmol/L (98-107); Creatinine Clr Calc Pharmacy 70.7261; Globulin 3.1 g/dL (1.3-4.6); Glomerular Filtration Rate 83.7 mL/min (90-130); Glucose 135 mg/dL (65-115); Osmolality Calculated 283 mOsm/kg (285-295); Potassium 4.5 mmol/L (3.5-5.1); Sodium 135 mmol/L (136-145); Total Bilirubin 1.2 mg/dL (0.15-1.2); Total Protein 7.6 g/dL (6.6-8.7)
[2024-08-12 10:47] LABS: Troponin(5th) Baseline 10 ng/L (0-15)
--- NOTE | 2024-08-12 12:02 | ECG_ITS ---
[facility]24-[facility]12 Pat Name: Jose Mcknight Department: Room: Gender: Male [employer] Systems Engineer: : 1955 Requested By: Zafar Gimenez Order Number: [id number] Ganesh MD: Alta Ruiz M.D. Measurements Intervals [place] Rate: 76 P: 46 NC: 170 QRS: -8 QRSD: 95 T: 21 QT: 356 QTc: 401 Interpretive Statements SINUS RHYTHM MODERATE VOLTAGE CRITERIA FOR LVH, CONSIDER NORMAL VARIANT [MEETS CRITERIA IN ONE OF: R(aVL), S(V1), R(V5), R(V5/V6)+S(V1)] Compared to ECG 08/12/2024 09:59:42 No significant change Electronically Signed On 08-12-2024 12:11:19 CDT by Alta Ruiz M.D. [email or web address]
[2024-08-12 12:38] LABS: Troponin 5 2HR 8.43 ng/L (0-15); Troponin 5 2HR Delta -1.57 ABS# (0-10)
[2024-08-12] MEDS: piperacillin-tazobactam 3.375 GM in sodium chloride 0.9% (plus) 50 ML IV ×2 (13:28→19:51)
[2024-08-12 14:13] LABS: Bilirubin Urine Negative (Negative); Blood Urine Negative (Negative); Glucose Urine UA 3+ (Normal); Ketones Urine Trace (Negative); Leukocyte Esterase Urine Negative (Negative); Nitrate Urine Negative (Negative); Protein Urine Negative (Negative); Urine Appearance Clear (CLEAR); Urine Color Yellow (Yellow); Urobilinogen Urine 0.2 mg/dL (Negative)
[2024-08-12 14:16] LABS: Specific Gravity, Urine 1.034 (1.005-1.030)
[2024-08-12 14:17] LABS: Add Urine Microscopic? YES; RBC Urine 0-4 /hpf (0-2); Squamous Epithelial Cell Urine 0-4 /hpf (0-5); WBC Urine 0-4 /hpf (0-5)
--- NOTE | 2024-08-12 14:49 | PC.NURSE ---
attempted pt report at 1448. Nurse Carina to call back for report.
[2024-08-12] MEDS: sodium chloride 0.9% 1,000 ML 100 ML IV (16:04)
--- NOTE | 2024-08-12 16:18 | ECG_ITS ---
[facility] Test Date: 2024-08-12 Pat Name: Jose Mcknight Department: Room: 264 Gender: Male Department Store Salesperson: : 1955 Requested By: Zafar Gimenez Order Number: [id number] Ganesh MD: Alta Ruiz M.D. Measurements Intervals [place] Rate: 87 P: 39 GA: 170 QRS: -9 QRSD: 98 T: 24 QT: 340 QTc: 409 Interpretive Statements SINUS RHYTHM INCOMPLETE RIGHT BUNDLE BRANCH BLOCK [90+ ms QRS DURATION, TERMINAL R IN V1/V2, 40+ ms S IN I/aVL/V4/V5/V6] MODERATE VOLTAGE CRITERIA FOR LVH, CONSIDER NORMAL VARIANT [MEETS CRITERIA IN Compared to ECG 08/12/2024 12:02:32 Incomplete right bundle-branch block now present Electronically Signed On 08-13-2024 12:41:53 CDT by Alta Ruiz M.D. [email or web address]
--- NOTE | 2024-08-12 16:34 | PM.HP ---
Providers/Chief Complaint Admitting Physician: Bre Gallo MD Primary Care Provider: CABRERA Sanabria Chief Complaint: chest pain History of Present Illness Jose Mcknight is a 68 year old male with diabetes and a history of intermittent postprandial right upper quadrant abdominal pain. He was seen in clinic by Dr. eReves in December 2023 for symptomatic cholelithiasis. A laparoscopic cholecystectomy was planned for January 2024. On the day of surgery, the patient changes his mind due to the fact that he had not had abdominal pain since about a month prior. Dr. Reeves did note/document that the gallstone measuring 1.8 cm, which puts him at a higher risk for developing acute cholecystitis in the future due to occlusion of the cystic duct...After weighting all risk and benefits of the operation vs the possibility of waiting patient has decided to defer surgical intervention. Today, the patient presented to the emergency department with right upper quadrant abdominal pain that has now since resolved. He was seen in the emergency department in [place] ~ 6 weeks ago for right upper quadrant abdominal pain. He was given IV antibiotics and discharged on 10 days of oral antibiotics. He had planned to see Dr. Reeves in clinic on August 23, 2024. He had not had any additional abdominal pain since that time, he had had no problems. Last night the patient ate mashed potatoes, dinner rolls, and salad with dressing. He then had 3-4 out of 10 abdominal pain that increased to 8 out of 10 abdominal pain. He last ate last night and had a cookie and last drink milk at 4 AM today. He denied fever or chills. At the time of my exam, he was very hungry, requesting food, and had no nausea, vomiting, or abdominal pain. The patient requested to go home now and defer surgery for elective surgery with Dr. Reeves. He has diabetes and takes Jardiance, Ezitimibe, and metformin. He did state that he had recently had either blood in his sperm or urine after intercourse a few days ago. He denied any perianal or perirectal pain. He did state that he had a symptomatic hemorrhoid. Review of Systems General: Reports: 10 or more systems reviewed and unremarkable except in HPI and below Medications/Allergies Home Medications ?Medication ?Instructions ?Recorded ?Confirmed ?Last Taken ?Type lisinopril 40 mg tablet 40 mg PO DAILY 07/07/22 05/17/25 05/17/25 08:00 History metformin 1,000 mg tablet 1,000 mg PO BID 10/02/21 08/12/24 08/12/24 08:00 History spironolactone 25 mg tablet 25 mg PO DAILY 01/30/22 08/12/24 08/12/24 08:00 History empagliflozin 25 mg tablet 25 mg PO DAILY 01/14/24 08/12/24 08/12/24 08:00 History (Jardiance) glipizide 10 mg tablet 10 mg PO DAILY 01/14/24 08/12/24 08/12/24 08:00 History ezetimibe 10 mg tablet 10 mg PO DAILY 08/12/24 08/12/24 08/12/24 08:00 History Allergies Allergy/AdvReac Type Severity Reaction Status Date / Time No Known Allergies Allergy Verified 02/17/24 14:41 PFSH Acute PFSH: Medical History Elevated PSA Surgical History History of vocal cord polypectomy Family History Father , AT 72 Stroke Mother , IN LATE 40'S EARLY 50'S Cirrhosis of liver Social History Smoking and tobacco/nicotine status: never used tobacco/nicotine Alcohol intake: never Substance/Drug Use: never Marital status: Current occupational status: unemployed Vitals/I&O/Wt Last Vital Signs Temp 97.5 F L 08/12/24 15:35 Pulse 79 08/12/24 15:35 Resp 16 08/12/24 15:35 BP 113/68 08/12/24 15:35 Pulse Ox 95 08/12/24 15:35 O2 Del Method Room Air 08/12/24 15:31 08/12/24 08/12/24 08/12/24 06:59 14:59 22:59 Intake Total 50 / 50 Balance 50 / 50 Weight last 48 hrs Weight 144 lb 3 oz Weight 160 lb Physical Exam Const: COMMON NORMALS: no acute distress and average body habitus Chest: COMMONS NORMALS: normal inspection of the chest Resp: COMMON NORMALS: normal respiratory effort and No use of accessory muscles GI: COMMON NORMALS: Soft to palpation, non-tender and No hepatosplenomegaly present OTHER: No right upper quadrant tenderness to palpation or right upper quadrant mass -with firm palpation. No rebound tenderness, no guarding, and no rigidity. : OTHER: Perirectal/perianal exam: No perirectal/perianal abscess. 1 cm in length prominent perianal skin tag. Rectal tone, no masses/tumors' Enlarged prostate. Data 08/12/24 10:19 08/12/24 10:19 A&P Assessment and plan (1) Symptomatic cholelithiasis: [place] guidelines for acute cholecystitis: Part A: Local signs of inflammation Cervantes sign - No Right upper quadrant abdominal mass, pain, or tenderness - No Part B: Systemic signs of inflammation Fever - No Elevated CRP Elevated white blood cell count - Yes Part C: Imaging Imaging findings characteristic of acute cholecystitis - e.g. pericholecystic fluid, gallstone/debris - Yes Criteria not currently met for acute cholecystitis diagnosis. However, if he still had right upper quadrant abdominal pain and/or a positive Cervantes sign he would have met criteria for a mild acute cholecystitis. -- I offered this patient laparoscopic cholecystectomy during this admission, however I told him that I would like to hold Jardiance and ezitimibe prior to surgery depending on how emergent the surgery needed to be. -- Ultimately, the patient wanted to return home and see Dr. Reeves in clinic and schedule an elective/outpatient cholecystectomy. -- In the setting of the leukocytosis of 16, and the US imaging findings of Stone in the gallbladder neck with slight gallbladder wall thickening. Acute cholecystitis can not be excluded , I feel that it would be prudent and recommended to observe him in the hospital overnight, give him IV antibiotics, advance his diet to a low-fat diet and n.p.o. at midnight, recheck his CBC in the morning, as well as serial abdominal exams. The patient would like to avoid emergent surgery if at all possible. Shared decision making was employed. I will reassess the patient in the morning. It is also reassuring that his lactate is only 2.0. -- I measured the gallbladder wall to be only 2 mm thick and there was no pericholecystic fluid. I am concerned about the 1.8 cm gallstone that is in the neck of the gallbladder, that he could develop a moderate or severe acute cholecystitis in the future, if he does not have a laparoscopic cholecystectomy during this admission, I recommend that he schedule cholecystectomy. -- The prominent perianal skin tag/polyp will need to be addressed, but not acutely. (2) Cholelithiasis: (3) Hematuria: -- No bacteriuria. Monitor for now. (4) RUQ abdominal pain: (5) Hyponatremia: -- Mild hyponatremia, IV fluids ordered. (6) Elevated PSA: (7) Diabetes: -- Sliding scale insulin and add q. checks ordered. PDMP PDMP Reviewed: Not Reviewed Attestations Medical Necessity Statement*: Monitor labs, vital signs, and serial abdominal exams. Coding Level of Care Code Acute Code for [facility] Fwd Diagnoses Symptomatic cholelithiasis K80.20 Cholelithiasis K80.20 Hematuria R31.9 RUQ abdominal pain R10.11 Hyponatremia E87.1 Elevated PSA R97.20 Diabetes E11.9
[2024-08-12 16:38] LABS: Glucose Point of Care 212 mg/dL (70-110)
[2024-08-12 16:46] LABS: Troponin 5 6HR 9.39 ng/L (0-15)
[2024-08-12 16:47] LABS: Troponin 5 6HR Delta -0.61 ng/L (0-12)
[2024-08-12] MEDS: insulin lispro 100 unit/1 mL SUBCUT (18:04)
[2024-08-12 21:19] LABS: Glucose Point of Care 148 mg/dL (70-110)
[2024-08-13 00:22] VITALS: BP 141/76; PULSE 69; RESP 16; TEMP 37; O2SAT 97
[2024-08-13] MEDS: sodium chloride 0.9% 1,000 ML 100 ML IV ×2 (00:41→11:09)
[2024-08-13] MEDS: piperacillin-tazobactam 3.375 GM in sodium chloride 0.9% (plus) 50 ML IV (03:53)
[2024-08-13 04:00] VITALS: BP 99/55; PULSE 65; RESP 14; TEMP 37.1; O2SAT 95
[2024-08-13 06:42] LABS: Basophils # 0.1 10^3/uL (0.0-0.1); Basophils % 0.5 %; Eosinophils # 0.2 10^3/uL (0.0-0.8); Eosinophils % 1.5 %; Hematocrit 38.2 % (37-53); Lymphocytes # 0.8 10^3/uL (0.8-4.8); Lymphocytes % 6.9 %; Mean Corpuscular HGB Conc 34.6 g/dL (30-55); Mean Corpuscular Hemoglobin 30.6 pg (27-33); Mean Corpuscular Volume 88.4 fl (82-101); Mean Platelet Volume 9.4 fL (7.4-10.4); Monocytes % 9.3 %; Neutrophils # 8.93 10^3/uL (1.8-7.7); Neutrophils % 81.2 %; Nucleated Red Blood Cells % 0 %; Platelet Count 171 10^3/cmm (157-399); Red Blood Count 4.32 10^6/uL (3.85-5.65); Red Cell Distribution Width 13.2 % (12.1-15.1); White Blood Count 11.01 10^3/uL (3.29-11.43)
[2024-08-13 06:51] LABS: Glucose Point of Care 89 mg/dL (70-110)
[2024-08-13 07:13] LABS: Alanine Aminotransferase 12 U/L (0-41); Albumin Level 3.6 g/dL (3.5-5.2); Alkaline Phosphatase 59 U/L (40-130); Anion Gap 16.9 (5-19); Aspartate Amino Transferase 10 U/L (0-40); Blood Urea Nitrogen 13 mg/dL (8-23); Calcium 8.9 mg/dL (8.5-10.5); Carbon Dioxide 20 mmol/L (22-29); Chloride 104 mmol/L (98-107); Creatinine Clr Calc Pharmacy 75.9882; Globulin 3.1 g/dL (1.3-4.6); Glomerular Filtration Rate 95.8 mL/min (90-130); Glucose 88 mg/dL (65-115); Osmolality Calculated 284 mOsm/kg (285-295); Potassium 3.9 mmol/L (3.5-5.1); Sodium 137 mmol/L (136-145); Total Bilirubin 2.4 mg/dL (0.15-1.2); Total Protein 6.7 g/dL (6.6-8.7)
[2024-08-13 08:06] VITALS: BP 117/65; PULSE 67; RESP 16; TEMP 36.5; O2SAT 94
[2024-08-13] MEDS: amoxicillin-clav 875-125 mg Tablet 1 TAB PO (11:05)
[2024-08-13 11:27] LABS: Glucose Point of Care 109 mg/dL (70-110)
[2024-08-13 11:53] VITALS: BP 103/64; PULSE 71; RESP 18; TEMP 36.4; O2SAT 93
--- NOTE | 2024-08-13 15:58 | P.DS_ITS ---
Discharge Providers Date of Admission: 08/12/24 13:35 Date of Discharge: August 13, 2024 Attending Provider at Admission: Bre Gallo MD Attending Provider at Discharge: Bre Gallo MD Consults: None Primary Care Provider: CABRERA Sanabria Diagnoses at Discharge Discharge Diagnosis (1) Symptomatic cholelithiasis: Details from hospital stay: [place] guidelines for acute cholecystitis: Part A: Local signs of inflammation Cervantes sign - No Right upper quadrant abdominal mass, pain, or tenderness - No Part B: Systemic signs of inflammation Fever - No Elevated CRP Elevated white blood cell count - Yes Part C: Imaging Imaging findings characteristic of acute cholecystitis - e.g. pericholecystic fluid, gallstone/debris - Yes Criteria not currently met for acute cholecystitis diagnosis. However, if he continued to have right upper quadrant abdominal pain and/or a positive Cervantes sign he would have met criteria for a mild acute cholecystitis. -- I offered this patient laparoscopic cholecystectomy during this admission. -- Ultimately, the patient wanted to return home and see Dr. Reeves in clinic and schedule an elective/outpatient cholecystectomy. -- Due to the leukocytosis of 16 and the reading of acute cholecystitis cannot be excluded I elected to place him in observation, advance his diet to low fat diet with NPO at midinght and recheck his abdominal exam and labs in the [place] emergency department. If his clinical picture worsened overnight I would have more strongly recommended in an intpatient cholecystectomy. -- Day of discharge WBC normalized. Hyponatremia resolved. He continued to deny abdominal pain and he was nontender in the right upper quadrant on physical exam. -- Day of discharge lab work was unremarkable other than a bilirubin was 2.4. This will be rechecked outpatient. -- The prominent perianal skin tag/polyp will need to be addressed, but not acutely. Status: Acute (2) Cholelithiasis: Status: Acute (3) Hematuria: Details from hospital stay: Resolved. Status: Acute (4) RUQ abdominal pain: Details from hospital stay: Resolved. Status: Acute (5) Hyponatremia: Details from hospital stay: Resolved. Status: Acute (6) Elevated PSA: Status: Acute (7) Diabetes: Status: Acute Reason for Visit Reason for Visit: chest pain Hospital Course Hospital Course Patient is a 68-year-old male with diabetes and a history of intermittent and postprandial right upper quadrant abdominal pain. He is a patient of Dr. Reeves'julián who was previously scheduled for cholecystectomy in January 2024 for symptomatic cholelithiasis, with a gallstone measuring 1.8 cm. On the day of surgery, the patient changed his mind having surgery due to the fact that the had not had abdominal pain since about a month prior. He had another episode of right upper quadrant abdominal pain approximately 6 weeks ago that he was treated for in [place] with IV antibiotics and oral antibiotics for 10 days. Prior to this admission, he had had severe right upper quadrant abdominal pain after eating mashed potatoes, dinner rolls, and salad with dressing. The time of my evaluation, the right upper quadrant abdominal pain had resolved and he was very hungry/requesting food. Focused right upper quadrant ultrasound demonstrated, Stone in the gallbladder neck with slight gallbladder wall thickening. Acute cholecystitis can not be excluded. The patient had a leukocytosis of 16. I placed him in observation with IV antibiotics, he was given a low-fat diet and made n.p.o. at midnight, with plans to recheck his abdominal exam, symptoms, and lab work in the morning. On the day of discharge, his abdominal pain continued to be resolved, he tolerated a low-fat diet without abdominal pain, and his physical exam abdominal findings were benign. Physical Exam Const: COMMON NORMALS: no acute distress and patient oriented x3 HENMT: COMMON NORMALS: normocephalic and atraumatic HEAD & SCALP: normocephalic and atraumatic Resp: COMMON NORMALS: normal respiratory effort and No use of accessory muscles GI: COMMON NORMALS: Soft to palpation and non-tender PALPATION: Yes Soft to palpation OTHER: No rebound tenderness, no rigidity, and no guarding. No right upper quadrant tenderness to palpation. Neuro: COMMON NORMALS: patient oriented x3 Discharge Data Studies Completed and Pending Completed Studies During Hospitalization Category Date Time Status XR chest 1V portable [id number] Stat Exams 08/12/24 10:18 Completed US gall bladder [id number] Stat Ultrasound 08/12/24 10:29 Completed Radiology Impressions Chest X-Ray 08/12/24 10:18 IMPRESSION: No acute findings. Gallbladder Ultrasound 08/12/24 10:29 IMPRESSION: Stone in the gallbladder neck with slight gallbladder wall thickening. Acute cholecystitis can not be excluded. Laboratory Results WBC 11.01 10^3/uL (3.29-11.43) 08/13/24 05:58 RBC 4.32 10^6/uL (3.85-5.65) 08/13/24 05:58 Hgb 13.20 g/dL (11.27-16.99) 08/13/24 05:58 Hct 38.2 % (37-53) 08/13/24 05:58 MCV 88.4 fl (82-101) 08/13/24 05:58 MCH 30.6 pg (27-33) 08/13/24 05:58 MCHC 34.6 g/dL (30-55) 08/13/24 05:58 RDW 13.2 % (12.1-15.1) 08/13/24 05:58 Plt Count 171 10^3/cmm (157-399) 08/13/24 05:58 MPV 9.4 fL (7.4-10.4) 08/13/24 05:58 Neut % (Auto) 81.2 % 08/13/24 05:58 Lymph % (Auto) 6.9 % 08/13/24 05:58 Dillon % (Auto) 9.3 % 08/13/24 05:58 Eos % (Auto) 1.5 % 08/13/24 05:58 Baso % (Auto) 0.5 % 08/13/24 05:58 Neut # (Auto) 8.93 10^3/uL (1.8-7.7) H 08/13/24 05:58 Lymph # (Auto) 0.8 10^3/uL (0.8-4.8) 08/13/24 05:58 Dillon # (Auto) 1.0 10^3/uL (0.2-0.9) H 08/13/24 05:58 Eos # (Auto) 0.2 10^3/uL (0.0-0.8) 08/13/24 05:58 Baso # (Auto) 0.1 10^3/uL (0.0-0.1) 08/13/24 05:58 Nucleated RBC % (auto) 0 % 08/13/24 05:58 Nucleated RBCs # 0.0 /100WBC 08/13/24 05:58 Sodium 137 mmol/L (136-145) 08/13/24 05:58 Potassium 3.9 mmol/L (3.5-5.1) 08/13/24 05:58 Chloride 104 mmol/L (98-107) 08/13/24 05:58 Carbon Dioxide 20 mmol/L (22-29) L 08/13/24 05:58 Anion Gap 16.9 (5-19) 08/13/24 05:58 BUN 13 mg/dL (8-23) 08/13/24 05:58 Creatinine 0.8 mg/dL (0.7-1.2) 08/13/24 05:58 GFR Calculation 95.8 mL/min (90-130) 08/13/24 05:58 Glucose 88 mg/dL (65-115) 08/13/24 05:58 POC Glucose 109 mg/dL (70-110) 08/13/24 11:24 Calculated Osmolality 284 mOsm/kg (285-295) L 08/13/24 05:58 Lactic Acid 2.0 mmol/L (0.5-2.2) 08/12/24 10:19 Calcium 8.9 mg/dL (8.5-10.5) 08/13/24 05:58 Total Bilirubin 2.4 mg/dL (0.15-1.2) H 08/13/24 05:58 AST 10 U/L (0-40) 08/13/24 05:58 ALT 12 U/L (0-41) 08/13/24 05:58 Alkaline Phosphatase 59 U/L (40-130) 08/13/24 05:58 Troponin T Baseline 10 ng/L (0-15) 08/12/24 10:19 Troponin T 120 Minute 8.43 ng/L (0-15) 08/12/24 12:10 Delta Troponin T -1.57 ABS# (0-10) L 08/12/24 12:10 Troponin T Hi Sens 6Hr 9.39 ng/L (0-15) 08/12/24 16:06 Troponin T Hi Sens 6Hr Delta -0.61 ng/L (0-12) L 08/12/24 16:06 Total Protein 6.7 g/dL (6.6-8.7) 08/13/24 05:58 Albumin 3.6 g/dL (3.5-5.2) 08/13/24 05:58 Globulin 3.1 g/dL (1.3-4.6) 08/13/24 05:58 Urine Color Yellow (Yellow) 08/12/24 13:49 Urine Appearance Clear (CLEAR) 08/12/24 13:49 Urine pH 5.0 (5-7) 08/12/24 13:49 Ur Specific [place]ier 1.034 (1.005-1.030) H 08/12/24 13:49 Urine Protein Negative (Negative) 08/12/24 13:49 Urine Glucose (UA) 3+ (Normal) H 08/12/24 13:49 Urine Ketones Trace (Negative) 08/12/24 13:49 Urine Blood Negative (Negative) 08/12/24 13:49 Urine Nitrate Negative (Negative) 08/12/24 13:49 Urine Bilirubin Negative (Negative) 08/12/24 13:49 Urine Urobilinogen 0.2 mg/dL (Negative) 08/12/24 13:49 Ur Leukocyte Esterase Negative (Negative) 08/12/24 13:49 Urine RBC 0-4 /hpf (0-2) H 08/12/24 13:49 Urine WBC 0-4 /hpf (0-5) H 08/12/24 13:49 Ur Squamous Epith Cells 0-4 /hpf (0-5) H 08/12/24 13:49 Amorphous Sediment Not Reportable 08/12/24 13:49 Urine Bacteria None /hpf (NONE) 08/12/24 13:49 Vitals Last Vital Signs Temp 97.6 F 08/13/24 11:53 Pulse 71 08/13/24 11:53 Resp 18 08/13/24 11:53 BP 103/64 08/13/24 11:53 Pulse Ox 93 08/13/24 11:53 O2 Del Method Room Air 08/13/24 11:53 Discharge Plan Discharge Patient Disposition: Home Condition: Stable Prescriptions: New amoxicillin-pot clavulanate 875-125 mg tablet 1 tab PO BID 9 Days Qty: 18 0RF Continued lisinopril 40 mg tablet 40 mg PO DAILY metformin 1,000 mg tablet 1,000 mg PO BID spironolactone 25 mg tablet 25 mg PO DAILY glipizide 10 mg tablet 10 mg PO DAILY Jardiance 25 mg Tablet 25 mg PO DAILY ezetimibe 10 mg Tablet 10 mg PO DAILY Discharge Orders: Discharge Order (Routine); Ordered 08/13/24 Ordered By: Bre Gallo Other Ambulatory Orders: Comprehensive Metabolic Panel (Routine) Timeframe: 2 Days Facility: [facility] - Location: Lab - Main Lab Ordered By: Bre Gallo Referrals: Susana Layton FNP [Primary Care Provider, Nurse Practitioner] - 7-10 days Referral Note: You will need to contact your primary care provider tomorrow for a hospital discharge follow up in 7-10 days. Discharge Diet: Low Fat Discharge Activity: Resume usual activity and May return to work/school without restrictions Patient Instructions: Amoxicillin/Clavulanate Potassium (By mouth), Cholelithiasis, Hyponatremia (DC), Opioid Safety Activity Restrictions/Additional Instructions: -- Obtain outpatient complete metabolic panel on 08/15, 08/16, or 08/17, results to be sent to Dr. Reeves's office. -- Follow up with Dr. Reeves in clinic soon. -- Strict return to ED instructions if severe abdominal pain/abdominal distension, intractable nausea or vomiting, or fevers/chills. Assessment: -- Symptomatic cholelithiasis Plan of Treatment: -- Prescription for oral antibiotics sent to [facility] in [place] - Augmentin for 9 days -- Strict low fat diet -- Outpatient complete metabolic panel (CMP) ordered -- Follow up with Dr. Reeves in clinic, tentatively plan for an elective/outpatient cholecystectomy (gallbladder removal) - timing to be determined Discharge Attestations Time Spent in Discharge Care*: greater than 30 min Quality Metrics Clinical Quality Measures [ No reported AMI, CVA or VTE this stay] Coding Level of Care Code Acute Code for Chg Fwd Diagnoses Symptomatic cholelithiasis K80.20 Cholelithiasis K80.20 Hematuria R31.9 RUQ abdominal pain R10.11 Hyponatremia E87.1 Elevated PSA R97.20 Diabetes E11.9
== END 2024-08-13 15:44 | disposition home or self-care (01) ==
LOC: ER 14:33 → MEDSURG 14:37
PROVIDERS: Admitting Provider Surgery; Emergency Provider Family Medicine; PCP Nurse Practitioner; Visit Provider Surgery
DX: K80.20 Calculus of gallbladder without cholecystitis without obstruction (principal); R31.9 Hematuria, unspecified; E78.1 Pure hyperglyceridemia; R97.20 Elevated prostate specific antigen [PSA]; E11.9 Type 2 diabetes mellitus without complications; Z79.84 Long term (current) use of oral hypoglycemic drugs
CPT/HCPCS: 12345; 36415; 36416; 71045; 76705; 80053; 81001; 82962; 83605; 84484; 85025; 93005; 96361; 96365; 96372; 99285; G0378; J1815; J2543; J7030; J9999

== ENCOUNTER → 2024-08-23 07:40 | Outpatient (BNVA) | payer OTHER, SELFPAY | PROVIDERS: PCP Nurse Practitioner; Visit Provider Surgery | DX: K80.20 Calculus of gallbladder without cholecystitis without obstruction (principal); R10.11 Right upper quadrant pain | CPT/HCPCS: 99214 ==

== ENCOUNTER 2024-09-25 12:15 | Observation (INO) | payer OTHER, MEDICARE, SELFPAY ==
[2024-09-25] VITALS (13 sets, daily range): BP systolic 90–150; BP diastolic 49–87; PULSE 62–89; RESP 16–19; TEMP 36.2–36.7; O2SAT 92–97; BMI 24.0
--- NOTE | 2024-09-25 08:04 | W.PM.OPSFHP ---
Same Day Surgery H&P Indication for Procedure/HPI DATE OF PROCEDURE: September 25, 2024 CHIEF COMPLAINT/INDICATIONFOR SURGICAL PROCEDURE: history of acute cholecystitis PREOP DIAGNOSIS: hystory of acute cholecystitis PLANNED PROCEDURE: Operation Date: 09/25/24 09:15 Proposed Procedures p Laparoscopic POSSIBLE Open Cholecystectomy 29946 K82.20(Not Applicable) - Brenden Reeves MD Medications/Allergies* Home Medications ?Medication ?Instructions ?Recorded ?Confirmed ?Type lisinopril 40 mg tablet 40 mg PO DAILY 10/02/21 09/21/24 History metformin 1,000 mg tablet 1,000 mg PO BID 10/02/21 09/21/24 History spironolactone 25 mg tablet 25 mg PO DAILY 01/30/22 09/21/24 History empagliflozin 25 mg tablet 25 mg PO DAILY 01/14/24 09/21/24 History (Jardiance) glipizide 10 mg tablet 10 mg PO DAILY 01/14/24 09/21/24 History ezetimibe 10 mg tablet 10 mg PO DAILY 08/12/24 09/21/24 History Allergies/Adverse Reactions Allergy/AdvReac Type Severity Reaction Status Date / Time No Known Allergies Allergy Verified 09/21/24 12:03 Current Medications: Generic Name Dose Route Start Last Admin Trade Name Freq PRN Reason Stop Dose Admin Sodium Chloride 1,000 mls @ 30 mls/hr 09/25/24 07:15 09/25/24 07:53 Sodium Chloride 0.9% IV 09/26/24 07:14 30 mls/hr .Q24H EDGAR Administration Pertinent History/Comorbid Conditions* Medical History (Updated 08/14/24 @ 00:00 by CHRISTI Casper) Elevated PSA Surgical History (Updated 12/30/21 @ 04:28 by Daniel Johnston MD) History of vocal cord polypectomy Family History (Updated 10/02/21 @ 12:44 by Gretchen Lorenzo LPN) Father, AT 72 Mother, IN LATE 40'S EARLY 50'S Cirrhosis of liver Mother Stroke Father Social History Smoking and tobacco/nicotine status: never used tobacco/nicotine Alcohol intake: never Substance/Drug Use: never Marital status: Current occupational status: unemployed Pertinent Exam Findings alert, oriented x 3, clear to auscultation bilaterally and regular rate & rhythm Recommendations Surgery/Procedure today Coding Level of Care Code Acute Code for Chg Jyotsna
--- NOTE | 2024-09-25 08:36 | ANES.PREANE2 ---
Pre-Anesthetic Assessment Height/Weight: Height 5 ft 4 in Weight 140 lb Temp Pulse Resp BP Pulse Ox O2 Del Method 97.4 F L 68 16 134/76 97 Room Air 09/25/24 07:28 09/25/24 07:28 09/25/24 07:28 09/25/24 07:28 09/25/24 07:28 09/25/24 07:28 Preop Diagnosis: hystory of acute cholecystitis Operation Date: 09/25/24 09:15 Proposed Procedures p Laparoscopic POSSIBLE Open Cholecystectomy 64292 K82.20(Not Applicable) - Brenden Reeves MD Was Beta Catarina taken within 24 hours: N/A Was Clonidine taken within 24 hours: N/A Last intake: Intake Last Liquid Date 09/24/24 Last Liquid Time 22:00 Last Solid Date 09/24/24 Last Solid Time 21:00 Social No alcohol and No tobacco Exam alert, oriented x 3, clear to auscultation bilaterally and regular rate & rhythm Airway Submandibular: within normal limits Cervical ROM: within normal limits Mallampati: Class II Dentition: full Comments: Comments: Few missing teeth, denies any loose Anesthetic Plan ASA status: 3 Anesthesia: General Other: No prior issues with anesthesia NPO since yesterday evening History of hypertension on lisinopril Type 2 diabetes, preop BS 145 Denies any pulmonary issues EKG showing sinus rhythm with RBBB METs greater than 4 Plan for GETA Medications/Allergies Home Medications ?Medication ?Instructions ?Recorded ?Confirmed ?Last Taken ?Type lisinopril 40 mg tablet 40 mg PO DAILY 10/02/21 09/21/24 09/24/24 History metformin 1,000 mg tablet 1,000 mg PO BID 10/02/21 09/21/24 09/24/24 History spironolactone 25 mg tablet 25 mg PO DAILY 01/30/22 09/21/24 09/24/24 History empagliflozin 25 mg tablet 25 mg PO DAILY 01/14/24 09/21/24 09/24/24 History (Jardiance) glipizide 10 mg tablet 10 mg PO DAILY 01/14/24 09/21/24 09/24/24 History ezetimibe 10 mg tablet 10 mg PO DAILY 08/12/24 09/21/24 09/24/24 History Allergies Allergy/AdvReac Type Severity Reaction Status Date / Time No Known Allergies Allergy Verified 09/21/24 12:03 Current Medications Generic Name Dose Route Start Last Admin Trade Name Freq PRN Reason Stop Dose Admin Sodium Chloride 1,000 mls @ 30 mls/hr 09/25/24 07:15 09/25/24 07:53 Sodium Chloride 0.9% IV 09/26/24 07:14 30 mls/hr .Q24H EDGAR Administration PFSH Anesthesia Medical History Elevated PSA Surgical History (Updated 08/23/24 @ 08:00 by SAHRON Woodard) History of vocal cord polypectomy Family History Father , AT 72 Stroke Mother , IN LATE 40'S EARLY 50'S Cirrhosis of liver Social History Smoking and tobacco/nicotine status: never used tobacco/nicotine Alcohol intake: never Substance/Drug Use: never Marital status: Current occupational status: unemployed Data Anesthesia Cardiac Studies: Sestamibi Stress Test (Cardiology) 03/12/23
[2024-09-25] MEDS: ceFAZolin 2,000 mg SDV 2000 MG IVP (09:10)
--- NOTE | 2024-09-25 11:00 | PC.NURSE ---
1055: updated patient family in waiting room by NIELS
[2024-09-25] MEDS: lidocaine-epi 1% 20 mL INJ INJECTION (11:29)
[2024-09-25] MEDS: BUPivacaine 0.25% INJ 30 mL INJECTION (11:30)
--- NOTE | 2024-09-25 11:46 | MRR_ITS ---
PROCEDURE INFORMATION: Exam: MR Abdomen Without Contrast Exam date and time: 09/25/2024 1:14 PM Age: 68 years old Clinical indication: Abnormal findings; Abnormal radiologic finding of the abdomen; Radiologic exam and body structure: US abd; Prior surgery; Surgery date: 3-7 days post-operative; Underwent subtotal cholecystectomy. US showed stone in neck of gb but no stone was identified when gallbladder was opened. ; Additional info: Susopected retained stone after cholecystectomy. , Patient who underwent subtotal cholecystectomy. US showed TECHNIQUE: Imaging protocol: Magnetic resonance imaging of the abdomen without contrast. COMPARISON: US gall bladder [id number] 08/12/2024 11:01 AM FINDINGS: Pleural spaces: Suspect bilateral lower lobe pleural effusions and/or consolidation/atelectasis. Liver: Moderate fatty infiltration of the liver. Gallbladder and biliary ducts: Post subtotal cholecystectomy with a small piece of gallbladder question on image 701/19 measuring 17 x 11 mm. The no biliary dilatation. There is a defect noted on image 701/19 measuring 11 x 10 mm which could be the gallstone was seen on the ultrasound within the remaining portion of the subtotal cholecystectomy. No evidence of choledocholithiasis. Pancreas: Unremarkable. No ductal dilation. Spleen: Unremarkable. No splenomegaly. Adrenal glands: Unremarkable. No mass. Kidneys: Unremarkable. No solid mass. No hydronephrosis. Stomach and bowel: Visualized stomach and intestines are unremarkable. Intraperitoneal space: Fluid and edema seen in the upper abdomen. More so on the right than on the left. Vasculature: No abdominal aortic aneurysm. Lymph nodes: No enlarged nodes. Bones/joints: Unremarkable. No suspicious lesions. Soft tissues: Unremarkable. MR/MR MRCP [id number] IMPRESSION: 1. With a history of subtotal cholecystectomy there appears to be a piece of gallbladder still left image 701/19 and 20 with a gallstone still in remaining piece of gallbladder. Inflammatory changes and fluid is seen in the upper abdomen more on right than on left. 2. Fatty liver. 3. Unremarkable common bile duct and biliary tree. 4. Correlation with the patient's previous head a subtotal cholecystectomy is needed. 5. Postoperative fluid and edema in the upper abdomen right greater than left.
--- NOTE | 2024-09-25 11:53 | PM.OP ---
Operative Report Date of procedure: September 25, 2024 Pre-op diagnosis: History of acute cholecystitis Post-op diagnosis: Acute on chronic cholecystitis Post-op findings: There was severe inflammation in the right upper quadrant, the bladder was distended with a very thickened wall. Decompression with decompressive needle was needed in order to grasp the gallbladder. The duodenum was plastered to the infundibulum of the gallbladder. Visualization of the hepatocystic triangle was impossible and therefore a subtotal cholecystectomy was done. Procedure done: Laparoscopic subtotal cholecystectomy Specimens removed/disposition: Gallbladder Surgeon: Brenden Reeves MD, Fredi Suero MD [employer] Machine Operator: [facility] Estimated blood loss: 50 Brief History: 68-year-old male who presented to my office for evaluation for possible cholecystectomy. He had multiple previous episodes of acute cholecystitis managed with antibiotics. Ultrasound show evidence of a possible gallbladder stone at the level of the neck of the gallbladder measuring about 1 cm. Procedure: Patient was brought into the OR, he was placed in a supine position. General anesthesia was given. The abdomen was prepped and draped in the usual sterile fashion. Timeout was conducted. The abdomen was accessed in the left upper quadrant with an Optiview 5 mm trocar. No evidence of visceral injury during entry was noted and the pneumoperitoneum was completed. A 12 mm trocar was placed in the suprapubic position under direct visualization an additional 5 mm trocars were placed in the epigastrium right upper quadrant right flank under direct visualization. The gallbladder appeared acutely inflamed and distended. It was impossible to grasp I had to use the decompressive needle to remove about 50 cc of bile and dislodged from the gallbladder before he was able to grasp it. After grasped the gallbladder and elevated from the fundus it was apparent that there was severe inflammation at the level of the infundibulum and hepatocystic triangle as well as contraction of the infundibulum. The duodenum was plastered against the infundibulum. With careful blunt dissection I was able to push the duodenum down by the lateral portion of the gallbladder was densely adhered to the duodenum and I decided not to continue this dissection as it was unsafe. At this point I decided to do a top-down approach, I opened the peritoneum on the sides of the gallbladder and took this opening up to the top of the gallbladder. With careful dissection and electrocautery I was able to pull down the upper two thirds of the gallbladder almost up to the level of the infundibulum. At this point it was apparent that I would not be able to continue additional dissection without risking the major injury to the biliary structures. Therefore I decided to proceed with a subtotal cholecystectomy. I open the gallbladder at the fundus. I evacuated all the contents of the gallbladder, I pulled my camera inside of the gallbladder I was not able to appreciate any stones or any residual sludge. I have reviewed the preoperative imaging and mention of a possible 1 cm stone in the neck of the gallbladder but this was not visible after opening the gallbladder, I was able to look all the way down to area that appeared to be the cystic duct entry. Since the imaging was not concordant with my intraoperative findings I decided to asked my colleague Dr. Bauman for help. He came to the OR and scrubbing, he concurred with my evaluation of the current clinical situation and agree with proceeding with a laparoscopic subtotal cholecystectomy. The epigastric trocar was upsized to a 12 mm. After emptying completely the gallbladder I then proceeded to transect the gallbladder with a 45 mm green load stapler in the area where the infundibulum meets the body of the gallbladder. 2 staple loads were needed for an adequate closure. No evidence of bile leak or bleeding was noted after removal of the gallbladder. The portion of the gallbladder was taken out of the abdomen with a Endo Catch bag. I then proceeded to place Westley drain in the liver bed the drain was delivered through the flank trocar and affixed to the skin using #3-0 nylon. The liver bed was irrigated and suctioned. The epigastrium and umbilical trocar sites were closed with a Genaro-Cliff suture passer under direct visualization using 0 Vicryl suture. The right upper quad trocar was removed under direct visualization, the left upper quadrant trocar was used to acquire pneumoperitoneum and subsequently removed. At the end of the procedure all counts were correct, the patient tolerated well the procedure was transferred to PACU in stable condition. Due to intraoperative findings patient will be admitted to the hospital I will obtain laboratory workup and an MRCP to evaluate for the need for additional intervention versus outpatient follow-up with hepatobiliary surgeon for completion cholecystectomy.
--- NOTE | 2024-09-25 12:01 | PM.HP ---
Providers/Chief Complaint Primary Care Provider: CABRERA Sanabria Chief Complaint: K80.20 History of Present Illness Jose Mcknight is a 68 year old male with history of multiple episodes of acute cholecystitis who presented for a laparoscopic cholecystectomy. Patient underwent a laparoscopic subtotal cholecystectomy as there was significant inflammation in the level of the infundibulum of the gallbladder. We cannot identify any stones inside of the gallbladder, which raises a concern of the stone being impacted inside of the cystic duct rather than inside of the gallbladder. For this reason the patient will be admitted for additional workup and observation over the next 24 hours Review of Systems General: Reports: 10 or more systems reviewed and unremarkable except in HPI and below Medications/Allergies Home Medications ?Medication ?Instructions ?Recorded ?Confirmed ?Last Taken ?Type lisinopril 40 mg tablet 40 mg PO DAILY 10/02/21 09/21/24 09/24/24 History metformin 1,000 mg tablet 1,000 mg PO BID 10/02/21 09/21/24 09/24/24 History spironolactone 25 mg tablet 25 mg PO DAILY 01/30/22 09/21/24 09/24/24 History empagliflozin 25 mg tablet 25 mg PO DAILY 01/14/24 09/21/24 09/24/24 History (Jardiance) glipizide 10 mg tablet 10 mg PO DAILY 01/14/24 09/21/24 09/24/24 History ezetimibe 10 mg tablet 10 mg PO DAILY 08/12/24 09/21/24 09/24/24 History Allergies Allergy/AdvReac Type Severity Reaction Status Date / Time No Known Allergies Allergy Verified 09/21/24 12:03 PFSH Acute PFSH: Medical History Elevated PSA Surgical History (Updated 08/23/24 @ 08:00 by SHARON Woodard) History of vocal cord polypectomy Family History Father , AT 72 Stroke Mother , IN LATE 40'S EARLY 50'S Cirrhosis of liver Social History Smoking and tobacco/nicotine status: never used tobacco/nicotine Alcohol intake: never Substance/Drug Use: never Marital status: Current occupational status: unemployed Vitals/I&O/Wt Last Vital Signs Temp 97.4 F L 09/25/24 07:28 Pulse 68 09/25/24 07:28 Resp 16 09/25/24 07:28 BP 134/76 09/25/24 07:28 Pulse Ox 97 09/25/24 07:28 O2 Del Method Room Air 09/25/24 07:28 09/24/24 09/25/24 09/25/24 22:59 06:59 14:59 Intake Total 1000 / 1000 Balance 1000 / 1000 Weight last 48 hrs Weight 140 lb Physical Exam Narrative: Abdomen is soft appropriately tender to palpation surgical incisions covered with Dermabond. There is a JOHNNY drain in the right flank. A&P Assessment and plan (1) Cholecystitis: (2) Cholelithiasis: Plan 68-year-old male with acute on chronic cholecystitis who underwent a subtotal cholecystectomy due to intense inflammation at the level of the hepatocystic triangle. Patient will be admitted for IV antibiotics and monitoring as well as to obtain additional imaging as preop imaging showed evidence of a possible 1 cm stone in the neck of the gallbladder that was not able to be identified during surgery. In the case of the stone being in the common bile duct patient will require immediate transfer to higher level of care for possible ERCP or additional surgery, in the case of the stone being in the remnant of the gallbladder or in the upper portion of the cystic duct I will probably discharge the patient in the next 24 hours a provide him an outpatient referral to hepatobiliary surgery for completion cholecystectomy. PDMP PDMP Reviewed: Not Reviewed Attestations Medical Necessity Statement*: 24 hours hospital stay for additional workup and pain control. Coding Level of Care Code Acute Code for [facility] Diagnoses Cholecystitis K81.9 Cholelithiasis K80.20
--- NOTE | 2024-09-25 12:41 | ANE.PACU2 ---
Inpatient post-anesthesia follow up: Airway intact: Yes Vital signs: Temperature 97.3 F Pulse Rate 68 Respiratory Rate 16 Blood Pressure 99/54 Pulse Oximetry 94 Oxygen Delivery Me thod Room Air Oxygen Flow Rate 8 Fraction of Inspir ed Oxygen Hydration adequate: Yes Nausea and vomiting: No Pain level: 1 Mental status: Baseline
[2024-09-25] MEDS: piperacillin-tazobactam 3.375 GM in sodium chloride 0.9% (plus) 50 ML IV ×2 (14:59→22:02)
[2024-09-25 15:58] LABS: Hematocrit 45.5 % (37-53); Hemoglobin 14.90 g/dL (11.27-16.99); Mean Corpuscular HGB Conc 32.7 g/dL (30-55); Mean Corpuscular Hemoglobin 29.7 pg (27-33); Mean Corpuscular Volume 90.6 fl (82-101); Nucleated Red Blood Cells % 0 %; Platelet Count 223 10^3/cmm (157-399); Red Blood Count 5.02 10^6/uL (3.85-5.65); White Blood Count 16.25 10^3/uL (3.29-11.43)
[2024-09-25 16:30] LABS: Alanine Aminotransferase 103 U/L (0-41); Albumin Level 4.1 g/dL (3.5-5.2); Alkaline Phosphatase 86 U/L (40-130); Anion Gap 21.5 (5-19); Aspartate Amino Transferase 91 U/L (0-40); Blood Urea Nitrogen 19 mg/dL (8-23); Calcium 8.8 mg/dL (8.5-10.5); Carbon Dioxide 17 mmol/L (22-29); Chloride 103 mmol/L (98-107); Creatinine Clr Calc Pharmacy 60.0751; Globulin 3.4 g/dL (1.3-4.6); Glucose 233 mg/dL (65-115); Osmolality Calculated 294 mOsm/kg (285-295); Potassium 4.5 mmol/L (3.5-5.1); Sodium 137 mmol/L (136-145); Total Protein 7.5 g/dL (6.6-8.7)
[2024-09-26 01:16] VITALS: BP 146/84; PULSE 78; RESP 17; TEMP 37; O2SAT 98
[2024-09-26 04:22] LABS: Hematocrit 36.6 % (37-53); Hemoglobin 12.50 g/dL (11.27-16.99); Mean Corpuscular HGB Conc 34.2 g/dL (30-55); Mean Corpuscular Hemoglobin 30.2 pg (27-33); Mean Corpuscular Volume 88.4 fl (82-101); Nucleated Red Blood Cells % 0 %; Platelet Count 206 10^3/cmm (157-399); Red Blood Count 4.14 10^6/uL (3.85-5.65); White Blood Count 15.30 10^3/uL (3.29-11.43)
[2024-09-26 04:50] LABS: Alanine Aminotransferase 58 U/L (0-41); Albumin Level 3.3 g/dL (3.5-5.2); Alkaline Phosphatase 62 U/L (40-130); Anion Gap 16.5 (5-19); Aspartate Amino Transferase 43 U/L (0-40); Blood Urea Nitrogen 23 mg/dL (8-23); Calcium 8.1 mg/dL (8.5-10.5); Carbon Dioxide 17 mmol/L (22-29); Chloride 107 mmol/L (98-107); Creatinine Clr Calc Pharmacy 54.6137; Globulin 2.6 g/dL (1.3-4.6); Glucose 212 mg/dL (65-115); Osmolality Calculated 292 mOsm/kg (285-295); Potassium 4.5 mmol/L (3.5-5.1); Sodium 136 mmol/L (136-145); Total Protein 5.9 g/dL (6.6-8.7)
[2024-09-26 05:07] VITALS: BP 101/62; PULSE 63; RESP 16; TEMP 37.1; O2SAT 95
[2024-09-26] MEDS: piperacillin-tazobactam 3.375 GM in sodium chloride 0.9% (plus) 50 ML IV (05:49)
--- NOTE | 2024-09-26 07:32 | P.DS_ITS ---
Discharge Providers Date of Admission: 09/25/24 12:15 Date of Discharge: September 26, 2024 Attending Provider at Admission: Brenden Reeves MD Attending Provider at Discharge: Brenden Reeves MD Primary Care Provider: CABRERA Sanabria Diagnoses at Discharge Discharge Diagnosis (1) Cholecystitis: Status: Acute (2) Cholelithiasis: Status: Acute Reason for Visit Reason for Visit: K80.20 Hospital Course Hospital Course 68-year-old male who presented to the hospital for an elective cholecystectomy after several episodes of acute cholecystitis. Laparoscopic cholecystectomy was done, there was severe inflammation in the hepatocystic triangle a subtotal cholecystectomy was required, the gallbladder was open but no stones were identified appears that the gallbladder curve at the bottom and despite several maneuvers to try to milk the stones I could not remove any stones distal to the area where the gallbladder curved. Patient was admitted for additional workup as I was concerned for possibility of a retained stone as the ultrasound done previous to surgery showed 1 cm stone in the neck of the gallbladder. The MRCP was consistent with this findings there is a possible stone deeper to the area of resection in the neck of the gallbladder. There is no obstruction of the CBD, laboratory workup showed slight increase in the white count which expected after surgery and LFTs that have downtrended by postoperative day 1. With this findings I will allow the patient to transition to the outpatient setting I will follow-up in 1 week for drain removal and we will give him a referral to hepatobiliary surgery for completion cholecystectomy as I have strongly advised the patient to have the remaining removed since there is a stone retained at that aspect of the gallbladder Physical Exam GI: OTHER: Benign abdominal examination abdomen soft appropriately tender there is a JOHNNY drain in place with serosanguineous fluid Discharge Data Studies Completed and Pending Completed Studies During Hospitalization Category Date Time Status MR MRCP [id number] Stat MRI 09/25/24 11:46 Completed Pending at discharge Category Date Time Status Pathology: Surgical [PTH] Routine Pth 09/25/24 12:12 Received Radiology Impressions Cholangiopancreatography MRI 09/25/24 11:46 IMPRESSION: 1. With a history of subtotal cholecystectomy there appears to be a piece of gallbladder still left image 701/19 and 20 with a gallstone still in remaining piece of gallbladder. Inflammatory changes and fluid is seen in the upper abdomen more on right than on left. 2. Fatty liver. 3. Unremarkable common bile duct and biliary tree. 4. Correlation with the patient's previous head a subtotal cholecystectomy is needed. 5. Postoperative fluid and edema in the upper abdomen right greater than left. Laboratory Results WBC 15.30 10^3/uL (3.29-11.43) H 09/26/24 04:04 RBC 4.14 10^6/uL (3.85-5.65) 09/26/24 04:04 Hgb 12.50 g/dL (11.27-16.99) 09/26/24 04:04 Hct 36.6 % (37-53) L 09/26/24 04:04 MCV 88.4 fl (82-101) 09/26/24 04:04 MCH 30.2 pg (27-33) 09/26/24 04:04 MCHC 34.2 g/dL (30-55) 09/26/24 04:04 RDW 13.5 % (12.1-15.1) 09/26/24 04:04 Plt Count 206 10^3/cmm (157-399) 09/26/24 04:04 MPV 9.4 fL (7.4-10.4) 09/26/24 04:04 Neut % (Auto) 85.7 % 09/26/24 04:04 Lymph % (Auto) 5.5 % 09/26/24 04:04 [place] % (Auto) 8.0 % 09/26/24 04:04 Eos % (Auto) 0.1 % 09/26/24 04:04 Baso % (Auto) 0.2 % 09/26/24 04:04 Neut # (Auto) 13.12 10^3/uL (1.8-7.7) H 09/26/24 04:04 Lymph # (Auto) 0.8 10^3/uL (0.8-4.8) 09/26/24 04:04 [place] # (Auto) 1.2 10^3/uL (0.2-0.9) H 09/26/24 04:04 Eos # (Auto) 0.0 10^3/uL (0.0-0.8) 09/26/24 04:04 Baso # (Auto) 0.0 10^3/uL (0.0-0.1) 09/26/24 04:04 Nucleated RBC % (auto) 0 % 09/26/24 04:04 Nucleated RBCs # 0.0 /100WBC 09/26/24 04:04 Sodium 136 mmol/L (136-145) 09/26/24 04:04 Potassium 4.5 mmol/L (3.5-5.1) 09/26/24 04:04 Chloride 107 mmol/L (98-107) 09/26/24 04:04 Carbon Dioxide 17 mmol/L (22-29) L 09/26/24 04:04 Anion Gap 16.5 (5-19) 09/26/24 04:04 BUN 23 mg/dL (8-23) 09/26/24 04:04 Creatinine 1.1 mg/dL (0.7-1.2) 09/26/24 04:04 GFR Calculation 66.4 mL/min (90-130) L 09/26/24 04:04 Glucose 212 mg/dL (65-115) H 09/26/24 04:04 POC Glucose 145 mg/dL (70-110) H 09/25/24 07:51 Calculated Osmolality 292 mOsm/kg (285-295) 09/26/24 04:04 Calcium 8.1 mg/dL (8.5-10.5) L 09/26/24 04:04 Total Bilirubin 0.8 mg/dL (0.15-1.2) 09/26/24 04:04 Direct Bilirubin 0.28 mg/dL (0.00-0.30) 09/26/24 04:04 AST 43 U/L (0-40) H 09/26/24 04:04 ALT 58 U/L (0-41) H 09/26/24 04:04 Alkaline Phosphatase 62 U/L (40-130) 09/26/24 04:04 Total Protein 5.9 g/dL (6.6-8.7) L D 09/26/24 04:04 Albumin 3.3 g/dL (3.5-5.2) L 09/26/24 04:04 Globulin 2.6 g/dL (1.3-4.6) 09/26/24 04:04 Vitals Last Vital Signs Temp 98.7 F 09/26/24 05:07 Pulse 63 09/26/24 05:07 Resp 16 09/26/24 05:07 BP 101/62 09/26/24 05:07 Pulse Ox 95 09/26/24 05:07 O2 Del Method Room Air 09/25/24 17:20 O2 Flow Rate 8 09/25/24 12:15 Discharge Plan Discharge Patient Disposition: Home Condition: Stable Prescriptions: New polyethylene glycol 3350 [Miralax] 17 gram powder in packet 17 g PO DAILY 7 Days Qty: 7 0RF amoxicillin-pot clavulanate 875-125 mg tablet 1 tab PO BID 7 Days Qty: 14 0RF oxycodone 5 mg tablet 5 mg PO Q8H PRN (Reason: pain) 7 Days Qty: 20 0RF Continued lisinopril 40 mg tablet 40 mg PO DAILY metformin 1,000 mg tablet 1,000 mg PO BID spironolactone 25 mg tablet 25 mg PO DAILY glipizide 10 mg tablet 10 mg PO DAILY Jardiance 25 mg Tablet 25 mg PO DAILY ezetimibe 10 mg Tablet 10 mg PO DAILY Discharge Orders: Discharge Order (Routine); Ordered 09/26/24 Ordered By: Brenden Reeves Referrals: Brenden Reeves MD [Physician, General Surgery] - 10/03/24 Referral Note: 1 week Discharge Diet: Low Fat Discharge Activity: Limit activity as instructed Patient Instructions: Acute Wound Care (DC), Opioid Safety, Post Anesthesia Care, Patient Portal & Tri Instructions Activity Restrictions/Additional Instructions: General Instructions: Please do not lift anything heavier than 10 pounds, for the next 4 to 6 weeks. You can walk is much as possible, this will help you recover faster. You can shower starting the day after tomorrow, let soap and water run over your wound and then pat dry. Please take your medication as indicated if you are taking opioids please do not forget to take a stool softener Warning signs: Return to the hospital if you have fever, chills, severe abdominal pain that is getting worse over time despite your pain medication or if your eyes or skin are turning yellow Discharge Attestations Time Spent in Discharge Care*: less than 30 min Quality Metrics Clinical Quality Measures [ No reported AMI, CVA or VTE this stay] Coding Level of Care Code Acute Code for [facility] Diagnoses Cholecystitis K81.9 Cholelithiasis K80.20
[2024-09-26 07:44] VITALS: BP 109/67; PULSE 69; RESP 18; TEMP 36.6; O2SAT 92
--- NOTE | 2024-09-26 07:59 | PC.SOCIAL ---
[facility] Patient is a [facility] client. Faxed H&P, OP Note, DC summary and [facility] orders to [facility] @ [facility] time.
--- NOTE | 2024-09-26 10:54 | PC.CHAP ---
Pastoral Care Encounter/Spiritual Assessment Type of Contact [] Declined manager athletics visit [] Patient/Family/Request visit [] Outpatient visit [] Follow-up visit [] Physician referral [] Code/Alert [x] Routine visit [] Staff referral [] Actively dying [] Patient sleeping [x] Family support [] [] Out of room [] Palliative care [] [] Receiving care in room [] Pre-surgical visit [] Trauma [] Long length of stay [] ICU visit [] Other: Relational/Emotional Strength [x] Patient feels connected with others/family/visitors/staff [] Distress [] Loneliness/isolation [] Abandonment Spirituality of Patient [x] Person of Lovely [] Attends Spiritism of their Lovely [x] Believes in Prayer [] Reads Bible or Spiritism materials [] There are Spiritual issues to be addressed Paper Coater Interventions [x] Prayer [x] Active listening [] Non-anxious presence [x] Spiritual/emotional support [] Crisis/trauma care [] Spiritual counseling [] Bereavement support [] Provided bereavement packet [] Provided Bible/devotional materials [] Provided toy/stuffed animal, coloring book to patient or family member [] Provided Communion [] Anointing/[place] [] Salvation [x] Completed spiritual assessment [] Other: Impact on Illness or Injury [] Angry [] Fearful [] Anxious [] Often cries [] Exhaustion [] Unable to work [] Unable to attend bahai [] Unable to walk/stand [] Unable to read [] Unable to drive [] Unable to eat/drink [] Unable to sleep [] Unable to be with family [] Patient intubated [] Other: Summary Time spent with patient 5 min
[2024-09-26 11:17] VITALS: BP 109/67; PULSE 69; RESP 18; TEMP 36.6; O2SAT 92
--- NOTE | 2024-09-26 12:18 | PC.NURSE ---
Discussed discharge with patient and spouse. Patient was instructed on signs and symptoms of infection, new medications, continued medications and stopped medications. Went over follow up visits with patient as well. Instructed both parties how to empty JOHNNY drain and to record amount. Please take log to Dr. Gillespie office with follow up appointment.
== END 2024-09-26 11:20 | disposition home or self-care (01) ==
LOC: MEDSURG 12:16
PROVIDERS: Admitting Provider Surgery; PCP Nurse Practitioner; Visit Provider Surgery
PROC: 0FT44ZZ Resection of Gallbladder, Percutaneous Endoscopic Approach (ICD-10-PCS; CPT 47562; principal; 2024-09-25 09:05)
DX: K81.1 Chronic cholecystitis (principal); I10 Essential (primary) hypertension; E11.9 Type 2 diabetes mellitus without complications; Z79.84 Long term (current) use of oral hypoglycemic drugs
CPT/HCPCS: 47562; 36415; 36416; 74181; 80048; 80076; 82962; 85025; 88304; G0378; J0131; J0690; J1100; J1171; J1885; J2405; J2543; J2704; J3010; J3490; J7030; J9999

== ENCOUNTER → 2024-10-04 13:41 | Outpatient (BNVA) | payer OTHER, SELFPAY | PROVIDERS: PCP Nurse Practitioner; Visit Provider Surgery | DX: R10.11 Right upper quadrant pain (principal); Z90.49 Acquired absence of other specified parts of digestive tract; Z98.890 Other specified postprocedural states | CPT/HCPCS: 99024 ==